=== PATIENT | female | born 1975 | race Caucasian/White ===

== ENCOUNTER 2017-05-28 11:10 | Emergency (ER) | payer SELFPAY ==
[2017-05-28 11:34] VITALS: BP 106/69; PULSE 82; RESP 18; TEMP 98; O2SAT 97
[2017-05-28 12:59] LABS: AUTOMATED NEUTROPHIL # 4.5 TH/MM3 (1.8-7.7); BASOPHIL % 0.6 % (0.0-2.0); EOSINOPHIL # 0.4 TH/MM3 (0-0.4); EOSINOPHIL % 5.8 % (0.0-4.0); HEMATOCRIT 42.8 % (35.0-46.0); HEMOGLOBIN 14.8 GM/DL (11.6-15.3); LYMPH % 19.4 % (9.0-44.0); LYMPHOCYTE # 1.3 TH/MM3 (1.0-4.8); MEAN CELL VOLUME 89.1 FL (80.0-100.0); MEAN CORPUSCULAR HEMOGLOBIN 30.9 PG (27.0-34.0); MEAN CORPUSCULAR HGB CONC 34.7 % (32.0-36.0); MEAN PLATELET VOLUME 8.6 FL (7.0-11.0); MONO % 5.1 % (0.0-8.0); MONOCYTE # 0.3 TH/MM3 (0-0.9); NEUT % 69.1 % (16.0-70.0); PLATELET COUNT 173 TH/MM3 (150-450); RED CELL DISTRIBUTION WIDTH 13.3 % (11.6-17.2); WHITE BLOOD COUNT 6.5 TH/MM3 (4.0-11.0)
[2017-05-28 13:14] LABS: BACTERIA, URINE RARE /hpf; BILIRUBIN, URINE NEG (NEG); BLOOD, URINE NEG (NEG); GLUCOSE,URINE 1000 mg/dL (NEG); KETONE, URINE NEG (NEG); MUCUS URINE FEW /lpf (OCC); NITRITE,URINE NEG (NEG); PH, URINE 5.5 (5.0-8.5); SQUAMOUS EPITHELIAL CELL URINE 7 /hpf (0-5); TRANSITIONAL EPI CELLS, URINE <1 /hpf; URINE COLOR YELLOW (YELLW/STRAW); URINE LEUKOCYTE ESTERASE NEG (NEG)
[2017-05-28 13:24] LABS: ALBUMIN 3.6 GM/DL (3.4-5.0); AST (GOT) 5 U/L (15-37); BICARBONATE 24.7 MEQ/L (21.0-32.0); BLOOD UREA NITROGEN 10 MG/DL (7-18); CALCIUM 8.7 MG/DL (8.5-10.1); CHLORIDE 104 MEQ/L (98-107); CREATININE 0.69 MG/DL (0.50-1.00); GLOMERULAR FILTRATION RATE 93 ML/MIN (>89); GLUCOSE,RANDOM 354 MG/DL (74-106); SODIUM (NA) 137 MEQ/L (136-145)
[2017-05-28 13:28] LABS: ALKALINE PHOSPHATASE 69 U/L (45-117); ALT (GPT) 18 U/L (10-53); TOTAL BILIRUBIN ADULT 0.5 MG/DL (0.2-1.0); TOTAL PROTEIN 6.5 GM/DL (6.4-8.2)
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
[2017-05-29] MEDS ORDERED: METF1000 PO (08:58)
[2017-05-29] MEDS ORDERED: EFFE150C PO (09:09)
[2017-05-29] MEDS ORDERED: HYDR50TA94 PO (09:09)
[2017-05-29] MEDS ORDERED: LANTUS2P SQ (09:09)
== END 2017-05-28 12:01 | disposition left against medical advice (07) ==
LOC: NETRI 11:10
DX: Z53.21 Procedure and treatment not carried out due to patient leaving prior to being seen by health care provider (principal); Z88.0 Allergy status to penicillin; Z88.5 Allergy status to narcotic agent
CPT/HCPCS: 80053; 81001; 83690; 85025; 99283

== ENCOUNTER 2017-05-29 07:31 | Inpatient (IN) | payer MEDICARE ==
[~2017-05-29] VITALS: Ht 154.9 cm; Wt 72.0 kg
[2017-05-29 07:55] VITALS: BP 113/72; PULSE 74; RESP 16; TEMP 98.3; O2SAT 98
[2017-05-29] MEDS ORDERED: METF1000 PO (08:58)
[2017-05-29] MEDS ORDERED: metFORMIN HCL 500 MG TAB PO ONE (09:00)
[2017-05-29] MEDS ORDERED: LANTUS2P SQ (09:09)
[2017-05-29] MEDS ORDERED: EFFE150C PO (09:09)
[2017-05-29] MEDS ORDERED: HYDR50TA94 PO (09:09)
--- NOTE | 2017-05-29 11:09 | PD ---
HPI Chief Complaint: Psychiatric Symptoms Time Seen by Provider: 08:48 Travel History International Travel<30 days: No Contact w/Intl Traveler<30days: No Traveled to known affect area: No History of Present Illness HPI 41-year-old female with history of type 2 diabetes, previously seen at [facility], and medically cleared at that time, was transferred to our facility under the Hua act for suicidal ideation. Patient remains medically stable currently. She remains suicidal with plan to jump into traffic to kill herself. For the labs are not felt warranted at this time, as she was just medically cleared prior to arrival. [facility] Past Medical History COPD: Yes Diabetes: Yes Patient Takes Glucophage: Yes Diminished Hearing: Yes (hearing loss both ears) Fibromyalgia: Yes Herniated Disk: Yes (L5) Respiratory: Yes (COPD) Tetanus Vaccination: < 5 Years Influenza Vaccination: No ?: Not Past Surgical History Section: Yes Cholecystectomy: Yes Hysterectomy: Yes Social History Alcohol Use: Yes (2x/month) Tobacco Use: Yes (1 ppd cigarettes) Substance Use: No Allergies-Medications (Allergen,Severity, Reaction): Coded Allergies: Penicillins (Verified Allergy, Unknown, 05/28/17) ciprofloxacin (Verified Allergy, Unknown, 05/28/17) hydromorphone (Verified Allergy, Unknown, 05/28/17) Reported Meds & Prescriptions Reported Meds & Active Scripts Active Reported Hydroxyzine HCl 50 Mg Tab 50 Mg PO HS Effexor XR 24 HR (Venlafaxine HCl) 150 Mg Cap 150 Mg PO DAILY Lantus Inj (Insulin Glargine) 1,000 Unit/10 Ml Vial 16 Units SQ BID Metformin (Metformin HCl) 1,000 Mg Tab 1,000 Mg PO BIDPC Review of Systems Except as stated in HPI: all other systems reviewed are Neg General / Constitutional: No: Fever Eyes: No: Visual changes HENT: No: Headaches Cardiovascular: No: Chest Pain or Discomfort Respiratory: No: Shortness of Breath Gastrointestinal: No: Abdominal Pain Genitourinary: No: Dysuria Musculoskeletal: No: Pain Skin: No Rash Neurologic: No: Weakness Psychiatric: Positive: Depression, Suicidal Ideations Endocrine: No: Polydipsia Hematologic/Lymphatic: No: Easy Bruising Physical Exam Narrative GENERAL: Patient appears anxious and in mild distress per SKIN: Warm and dry. Normal color. Normal turgor HEAD: Atraumatic. Normocephalic. EYES: Pupils equal and round. No scleral icterus. No injection or drainage. ENT: No nasal bleeding or discharge. Mucous membranes pink and moist. Pharynx is clear. Airways patent. NECK: Trachea midline. Supple and nontender. CARDIOVASCULAR: Regular rate and rhythm. RESPIRATORY: No accessory muscle use. Clear to auscultation. Breath sounds equal bilaterally. GASTROINTESTINAL: Abdomen soft, non-tender, nondistended. Hepatic and splenic margins not palpable. MUSCULOSKELETAL: Extremities without clubbing, cyanosis, or edema. No obvious deformities. NEUROLOGICAL: Awake and alert. No obvious cranial nerve deficits. Motor grossly within normal limits. Five out of 5 muscle strength in the arms and legs. Normal speech. PSYCHIATRIC: Appropriate mood and affect; insight and judgment normal. Data Data Last Documented VS Vital Signs Date Time Temp Pulse Resp B/P (MAP) Pulse Ox O2 Delivery O2 Flow Rate FiO2 05/29/17 07:55 98.3 74 16 113/72 (86) 98 Room Air Orders Orders Diet Diabetic (05/29/17 Breakfast) Metformin (Glucophage) (05/29/17 09:00) Diet Diabetic (05/29/17 Lunch) MDM Medical Decision Making Medical Screen Exam Complete: Yes Emergency Medical Condition: Yes Medical Record Reviewed: Yes Differential Diagnosis Hua act. Suicidal ideation. Type 2 diabetes Narrative Course 41-year-old female with history of type 2 diabetes, previously seen at [facility], and medically cleared at that time, was transferred to our facility under the Hua act for suicidal ideation. Patient remains medically stable currently. She remains suicidal with plan to jump into traffic to kill herself. For the labs are not felt warranted at this time, as she was just medically cleared prior to arrival. Disposition: 01 DISCHARGE HOME Condition: Stable Papo Vinson May 29, 2017 11:09
[2017-05-29] MEDS: INSULIN DETEMIR 100 UNITS/ML VIAL SQ SCH ×2 (11:57→21:28)
[2017-05-29 13:25] VITALS: BP 125/84; PULSE 75; RESP 16; TEMP 98.7; O2SAT 99
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
[2017-05-29] MEDS ORDERED: ACETAMINOPHEN 325 MG TAB PO PRN (17:30)
[2017-05-29] MEDS ORDERED: MAGNESIUM HYDROXIDE SUSP 30 ML CUP PO PRN (17:30)
[2017-05-29] MEDS ORDERED: ALUMINUM/MAGNESIUM/SIMETH 30 ML CUP PO PRN (17:30)
[2017-05-29] MEDS ORDERED: GLUCAGON 1 MG/ML VIAL OTHER PRN (18:00)
[2017-05-29] MEDS: metFORMIN HCL 500 MG TAB PO SCH (18:00)
[2017-05-29] MEDS ORDERED: DEXTROSE 50% IN WATER 50 ML VIAL(D50) IV PUSH PRN (18:00)
[2017-05-29 18:52] VITALS: BP 117/85; PULSE 78; RESP 18; TEMP 95.9
[2017-05-29] MEDS: hydrOXYzine HCL 50 MG TAB PO SCH ×2 (21:00→21:31)
[2017-05-29] MEDS: INSULIN ASPART SUPPLEMENTAL SCALE SQ SCH (21:28)
[2017-05-30 06:23] VITALS: BP 108/62; PULSE 62; RESP 16; TEMP 98.1; O2SAT 98
[2017-05-30] MEDS: INSULIN ASPART SUPPLEMENTAL SCALE SQ SCH ×4 (08:03→20:47)
[2017-05-30] MEDS: metFORMIN HCL 500 MG TAB PO SCH ×2 (09:06→17:57)
[2017-05-30] MEDS ORDERED: hydrOXYzine HCL 50 MG TAB PO ONE (12:00)
[2017-05-30 12:49] LABS: AUTOMATED NEUTROPHIL # 5.3 TH/MM3 (1.8-7.7); BASOPHIL % 0.6 % (0.0-2.0); EOSINOPHIL # 0.4 TH/MM3 (0-0.4); EOSINOPHIL % 5.1 % (0.0-4.0); HEMOGLOBIN 15.1 GM/DL (11.6-15.3); LYMPH % 20.8 % (9.0-44.0); LYMPHOCYTE # 1.6 TH/MM3 (1.0-4.8); MEAN CELL VOLUME 89.2 FL (80.0-100.0); MEAN CORPUSCULAR HEMOGLOBIN 31.3 PG (27.0-34.0); MEAN CORPUSCULAR HGB CONC 35.1 % (32.0-36.0); MONO % 4.7 % (0.0-8.0); MONOCYTE # 0.4 TH/MM3 (0-0.9); NEUT % 68.8 % (16.0-70.0); PLATELET COUNT 162 TH/MM3 (150-450); RED BLOOD COUNT 4.82 MIL/MM3 (4.00-5.30); RED CELL DISTRIBUTION WIDTH 13.7 % (11.6-17.2); WHITE BLOOD COUNT 7.6 TH/MM3 (4.0-11.0)
[2017-05-30 13:16] LABS: ALBUMIN 3.4 GM/DL (3.4-5.0); ALT (GPT) 16 U/L (10-53); AST (GOT) 6 U/L (15-37); BICARBONATE 28.4 MEQ/L (21.0-32.0); BLOOD UREA NITROGEN 11 MG/DL (7-18); CALCIUM 9.3 MG/DL (8.5-10.1); CHLORIDE 104 MEQ/L (98-107); CHOLESTEROL 184 MG/DL (120-200); GLOMERULAR FILTRATION RATE 109 ML/MIN (>89); GLUCOSE,RANDOM 166 MG/DL (74-106); MAGNESIUM 1.3 MG/DL (1.5-2.5); SODIUM (NA) 140 MEQ/L (136-145)
[2017-05-30 13:25] LABS: ALKALINE PHOSPHATASE 63 U/L (45-117); CHOLESTEROL/ HDL RATIO 4.27 RATIO; LDL CHOLESTEROL 106 MG/DL (0-99); PHOSPHORUS 4.1 MG/DL (2.5-4.9); TOTAL BILIRUBIN ADULT 0.4 MG/DL (0.2-1.0); TOTAL PROTEIN 6.3 GM/DL (6.4-8.2); TRIGLYCERIDES 175 MG/DL (42-150)
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
[2017-05-30 17:46] VITALS: BP 108/62; PULSE 62; RESP 16; TEMP 98.1; O2SAT 99
[2017-05-30] MEDS ORDERED: OXYC-395 PO (18:02)
[2017-05-30] MEDS ORDERED: METF1000 PO (18:04)
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
[2017-05-30] MEDS ORDERED: ALBUTEROL SULFATE 90 MCG/ACT HFA 8 GM INHALER INH PRN (18:30)
[2017-05-30 19:37] LABS: HEMOGLOBIN A1C 10.7 % (4.3-6.0)
[2017-05-30] MEDS: INSULIN DETEMIR 100 UNITS/ML VIAL SQ SCH (20:46)
[2017-05-30] MEDS ORDERED: INSULIN GLARGINE 1,000 UNITS/10 ML VIAL SQ SCH (21:00)
[2017-05-30] MEDS: hydrOXYzine HCL 50 MG TAB PO SCH (21:02)
[2017-05-31 06:16] VITALS: BP 96/66; PULSE 65; RESP 16; TEMP 98; O2SAT 97
[2017-05-31] MEDS: metFORMIN HCL 500 MG TAB PO SCH ×2 (06:50→16:00)
[2017-05-31] MEDS: INSULIN ASPART SUPPLEMENTAL SCALE SQ SCH ×4 (07:37→20:51)
[2017-05-31] MEDS: INSULIN DETEMIR 100 UNITS/ML VIAL SQ SCH ×2 (08:39→20:50)
[2017-05-31] MEDS: VENLAFAXINE HCL XR 75 MG CAP PO SCH (08:39)
[2017-05-31] MEDS ORDERED: MAGNESIUM OXIDE 400 MG TAB PO ONE (09:00)
[2017-05-31] MEDS: IBUPROFEN 800 MG TAB PO PRN (09:26)
[2017-05-31] MEDS ORDERED: MUPIROCIN 2% OINT 1 APPLIC/GM SYR EACH NARE SCH (09:30)
[2017-05-31] MEDS: hydrOXYzine HCL 50 MG TAB PO PRN (09:56)
--- NOTE | 2017-05-31 10:00 | HHI.PR ---
Subjective Remarks Follow-up on patient with diabetes, COPD, suicidal ideation. Patient seen and examined. Patient complains of a foul fishy odor and vaginal itching for the past several days. She denies any vaginal discharge or dysuria. She denies any fever or chills. She complains of tender sores on the inside of her nose. Denies any chest pain or shortness of breath. She denies any dizziness, lightheadedness or vision changes. Denies any nausea vomiting or abdominal pain. Objective Vitals Vital Signs Date Time Temp Pulse Resp B/P (MAP) Pulse Ox O2 Delivery O2 Flow Rate FiO2 05/31/17 06:16 98.0 65 16 96/66 (76) 97 05/30/17 17:46 98.1 62 16 108/62 (77) 99 Result Diagram: 05/30/17 1159 05/30/17 1159 Objective Remarks GENERAL: Well-nourished, well-developed female patient in NAD. Awake and alert. Sitting up in bed. SKIN: Warm and dry. No rash. HEAD: Normocephalic. Atraumatic. ENT: EOMI. Sclera anicteric. (+)tender erythematous lesions on inside of nares. Mucous membranes pink and moist. CARDIOVASCULAR: Regular rate and rhythm. No murmur appreciated. RESPIRATORY: Nonlabored. Clear to auscultation. Breath sounds equal bilaterally. GASTROINTESTINAL: Abdomen soft, non-tender, nondistended. Normoactive bowel sounds x4. MUSCULOSKELETAL: No obvious deformities. Extremities without clubbing, cyanosis , or edema. Right elbow with no edema/erythema, nontender to palpation, full active ROM. NEUROLOGICAL: Awake and alert. No obvious cranial nerve deficits. Motor grossly within normal limits. 5/5 muscle strength in bilateral upper and lower extremities. Normal speech. PSYCHIATRIC: Blunt affect. Calm and cooperative. Medications and IVs Current Medications Medications (Trade) Dose Ordered Sig/Diana Route Start Time Stop Time Status Last Admin (Milk Of Magnesia Liq) 30 ml DAILY PRN PO 05/29/17 17:30 (Mag-Al Plus Susp Liq) 30 ml Q6H PRN PO 05/29/17 17:30 (D50w (Vial) Inj) 50 ml UNSCH PRN IV PUSH 05/29/17 18:00 (Glucagon Inj) 1 mg UNSCH PRN OTHER 05/29/17 18:00 (NovoLOG SUPPLEMENTAL SCALE) 1 ACHS SLIDING SCALE SQ 05/29/17 21:00 05/30/17 20:47 (Atarax) 50 mg HS PO 05/29/17 21:00 05/30/17 21:02 (Effexor Xr) 150 mg DAILY PO 05/31/17 09:00 05/31/17 08:39 (Motrin) 800 mg Q8H PRN PO 05/30/17 14:15 05/31/17 09:26 (Levemir Inj) 16 units BID SQ 05/30/17 21:00 05/31/17 08:39 (Roxicodone) 10 mg BID PRN PO 05/30/17 18:15 05/30/17 19:46 (Glucophage) 1,000 mg BIDAC PO 05/31/17 07:00 05/31/17 06:50 (Proair Hfa Inh) 2 puff Q4H PRN INH 05/30/17 18:30 (Mag-Ox) 400 mg Q12HR PO 05/31/17 21:00 06/02/17 20:59 (Bactroban Nasal 2% Oint) 1 applic BID EACH NARE 05/31/17 09:30 06/05/17 09:29 05/31/17 09:30 (Atarax) 50 mg BID PRN PO 05/31/17 10:00 05/31/17 09:56 A/P Problem List: (1) Chronic back pain ICD Code: M54.9 - Dorsalgia, unspecified; G89.29 - Other chronic pain (2) Diabetes mellitus ICD Code: E11.9 - Type 2 diabetes mellitus without complications Assessment and Plan 41-year-old homeless female with history of type 2 diabetes, COPD, tobacco use 2PPD, fibromyalgia, chronic back pain with herniated disc L5-S1, depression, anxiety, PTSD, admitted to inpatient psychiatry for suicidal ideations with a plan to run out in traffic. Hospitalist consulted for medical management of diabetes. Depression with Suicidal Ideations: acute -continue management per psychiatry Chronic Back Pain, Herniated Disc, Fibromyalgia: chronic. Wants her medications restarted; takes oxycodone 10 mg po bid (verified on E-Forcse), sees pain management Dr. Heather Levine in [place], [place]. -continue patient's oxycodone 10mg po bid prn pain -continue outpatient follow up with pain management Hypotensive, asymptomatic -BP 96/66 this am, repeat BP 116/85 -continue to monitor BP Diabetes Mellitus: chronic -A1c 10.7. Patient states previous A1c was 13. -blood sugar running low to mid 200s in the afternoon. Increase Levemir to 18u in am. Continue Levemir 16u at night. -continue patient's Lantus 16u sq bid (converted to Levemir) -continue patient's metformin 1000mg bidac -monitor accu-cheks and cover with SSI Vaginal odor/itching -UA ordered, no culture indicated -will treat empirically for trichomonas, metronidazole 2g x 1 dose -obtain urine for GC/Chlamydia Hypomagnesemia -po repletion ordered -repeat Mag level in 2-3 days Impetigo -Mupirocin TID each nare x 5 days Tobacco Use: chronic. Smokes 2 PPD. -nicotine patch -counseled on cessation COPD: chronic, does not appear to be in exacerbation -albuterol inhaler 2puff q4h prn SOB/wheezing Hyperlipidemia: lipid panel revealed triglycerides 175, cholesterol 184, LDL 106 , HDL 43 - nonfasting labs -elder counselor on diet control -no heart disease, however patient does have diabetes therefore LDL goal is less than 70 -diet control for now, outpatient follow up with PCP for repeat LFTs in 3 months DVT Prophylaxis: patient is ambulatory Kalyn Jenkins May 31, 2017 10:00
[2017-05-31 10:08] LABS: BACTERIA, URINE RARE /hpf; BILIRUBIN, URINE NEG (NEG); BLOOD, URINE NEG (NEG); GLUCOSE,URINE 300 mg/dL (NEG); HYALINE CAST, URINE 1 /lpf (RARE); KETONE, URINE NEG (NEG); MUCUS URINE MOD /lpf (OCC); NITRITE,URINE NEG (NEG); PH, URINE 5.5 (5.0-8.5); SQUAMOUS EPITHELIAL CELL URINE 8 /hpf (0-5); URINE COLOR YELLOW (YELLW/STRAW); URINE LEUKOCYTE ESTERASE LARGE (NEG)
[2017-05-31] MEDS ORDERED: metroNIDAZOLE 500 MG TAB PO ONE (11:00)
[2017-05-31 12:16] VITALS: BP 116/85; PULSE 86; RESP 18; O2SAT 98
--- NOTE | 2017-05-31 14:32 | PD.PSY.CON ---
Provisional Diagnosis Admission Date May 29, 2017 at 17:29 [place]. Adjustment disorder with mixed disturbances of emotion and conduct, borderline personality disorder History of Present Illness Service Psychiatry Consult Requested By Psychiatry Reason for Consult 2nd Opinion Primary Care Physician No Primary Care Physician HPI Pt seen and discussed with staff. Chart reviewed. She was admitted to [facility] under BA taken out by [facility] alleging that pt made suicidal threats to walk into traffic if discharged from the hospital. She reports that she remains depressed and anxious and remains suicidal. She has been easily agitated and anxious today. She reports that she has had numerous psychiatric hospitalizations and approximately 10 lifetime suicide attempts. She states that she is tolerating medications without side effects. She denies psychosis or corina. She reports that she has had previous trials of effexor which was helpful with depression. Review of Systems Psychiatric: COMPLAINS OF: Anxiety, Depression, Suicidal Ideation Past Family Social History Coded Allergies: Penicillins (Verified Allergy, Unknown, 05/28/17) ciprofloxacin (Verified Allergy, Unknown, 05/28/17) hydromorphone (Verified Allergy, Unknown, 05/28/17) Past Medical History depression. multiple psychiatric hospitalization. 10 lifetime suicide attempts Active Scripts Metformin (Metformin) 1,000 Mg Tab, 1000 MG PO BIDAC for Blood Sugar Management , #60 TAB 0 Refills Prov:Maryann Jean PA-C 05/30/17 Oxycodone (Oxycodone) 10 Mg Tab, 10 MG PO BID Y for PAIN, #30 TAB 0 Refills Prov:Maryann Jean PA-C 05/30/17 Reported Medications Hydroxyzine HCl (Hydroxyzine HCl) 50 Mg Tab, 50 MG PO HS, TAB 0 Refills 05/29/17 Venlafaxine ER 24 HR (Effexor XR 24 HR) 150 Mg Cap, 150 MG PO DAILY, #30 CAP 0 Refills 05/29/17 Insulin Glargine Inj (Lantus Inj) 1,000 Unit/10 Ml Vial, 16 UNITS SQ BID for Blood Sugar Management, VIAL 0 Refills 05/29/17 Current Medications Medications (Trade) Dose Ordered Sig/Diana Route Start Time Stop Time Status Last Admin (Milk Of Magnesia Liq) 30 ml DAILY PRN PO 05/29/17 17:30 (Mag-Al Plus Susp Liq) 30 ml Q6H PRN PO 05/29/17 17:30 05/31/17 11:54 (D50w (Vial) Inj) 50 ml UNSCH PRN IV PUSH 05/29/17 18:00 (Glucagon Inj) 1 mg UNSCH PRN OTHER 05/29/17 18:00 (NovoLOG SUPPLEMENTAL SCALE) 1 ACHS SLIDING SCALE SQ 05/29/17 21:00 05/31/17 11:19 (Atarax) 50 mg HS PO 05/29/17 21:00 05/30/17 21:02 (Effexor Xr) 150 mg DAILY PO 05/31/17 09:00 05/31/17 08:39 (Motrin) 800 mg Q8H PRN PO 05/30/17 14:15 05/31/17 09:26 (Roxicodone) 10 mg BID PRN PO 05/30/17 18:15 05/31/17 11:10 (Glucophage) 1,000 mg BIDAC PO 05/31/17 07:00 05/31/17 06:50 (Proair Hfa Inh) 2 puff Q4H PRN INH 05/30/17 18:30 (Mag-Ox) 400 mg Q12HR PO 05/31/17 21:00 06/02/17 20:59 (Atarax) 50 mg BID PRN PO 05/31/17 10:00 05/31/17 09:56 (Levemir Inj) 16 units HS SQ 05/31/17 21:00 (Levemir Inj) 18 units DAILY SQ 06/01/17 09:00 (Bactroban Nasal 2% Oint) 1 applic TID EACH NARE 05/31/17 18:00 06/05/17 17:59 Family Psych History depression Social History homeless Patient's Strengths (min. 2) Patient verbal, access to health care. Physical Exam Vital Signs Vital Signs Date Time Temp Pulse Resp B/P (MAP) Pulse Ox O2 Delivery O2 Flow Rate FiO2 05/31/17 12:16 86 18 116/85 (95) 98 05/31/17 06:16 98.0 05/29/17 13:25 Room Air Lab Results Test 05/31/17 09:32 Urine Color YELLOW Urine Turbidity HAZY Urine pH 5.5 Urine Specific [place] 1.015 Urine Protein NEG mg/dL Urine Glucose (UA) 300 mg/dL Urine Ketones NEG mg/dL Urine Occult Blood NEG Urine Nitrite NEG Urine Bilirubin NEG Urine Urobilinogen LESS THAN 2.0 MG/DL Urine Leukocyte Esterase LARGE Urine RBC 3 /hpf Urine WBC 5 /hpf Urine Squamous Epithelial Cells 8 /hpf Urine Bacteria RARE /hpf Urine Hyaline Casts 1 /lpf Urine Mucus MOD /lpf Microscopic Urinalysis Comment CULT NOT INDICATED Mental Status Examination Appearance: Appropriate (in hospital [facility]), Disheveled Consciousness: Alert Orientation: x4 Motor Activity: Normal gait Speech: Unremarkable Language: Adequate Fund of Knowledge: Adequate Attention and Concentration: Adequate Memory: Unremarkable Mood: Angry, Sad, Other (deepressed) Affect: Other (dysphoric) Thought Process & Associations: Intact, Logical, Goal directed Thought Content: Appropriate Hallucination Type: None Delusion Type: None Suicidal Ideation: Yes Suicidal Plan: Yes (walk in traffic) Suicidal Intention: No Homicidal Ideation: No Homicidal Plan: No Homicidal Intention: No Insight: Fair Judgment: Impulsive Assessment & Plan Problem List: (1) Adjustment disorder with mixed disturbance of emotions and conduct ICD Codes: F43.25 - Adjustment disorder with mixed disturbance of emotions and conduct Assessment & Plan I agree that pt meets criteria for involuntary hospitalization. 2nd opinion paperwork completed Estimated LOS: days Request HC Surrog/Guard Advoc?: Johnna Franks MD May 31, 2017 14:32
[2017-05-31] MEDS ORDERED: ONDANSETRON ODT 4 MG TAB PO ONE (16:00)
[2017-05-31] MEDS: MUPIROCIN 2% OINT 1 APPLIC/GM SYR EACH NARE SCH (17:02)
[2017-05-31 18:29] VITALS: BP 112/66; PULSE 66; RESP 18; TEMP 98.3; O2SAT 99
--- NOTE | 2017-05-31 19:19 | EKG ---
Date Performed: 05/30/2017 Time Performed: 12:45:24 PTAGE: 41 years EKG: Sinus rhythm NORMAL ECG NO PREVIOUS TRACING DOCTOR: Romel Wilcox Interpretating Date/Time 05/31/2017 19:17:39
[2017-05-31] MEDS: MAGNESIUM OXIDE 400 MG TAB PO SCH (20:47)
[2017-05-31] MEDS: hydrOXYzine HCL 50 MG TAB PO SCH (20:47)
[2017-06-01 05:38] VITALS: BP 94/69; PULSE 83; RESP 17; TEMP 98.2; O2SAT 99
[2017-06-01] MEDS: INSULIN ASPART SUPPLEMENTAL SCALE SQ SCH ×4 (07:01→20:34)
[2017-06-01] MEDS: VENLAFAXINE HCL XR 75 MG CAP PO SCH (08:34)
[2017-06-01] MEDS: IBUPROFEN 800 MG TAB PO PRN (08:34)
[2017-06-01] MEDS: hydrOXYzine HCL 50 MG TAB PO PRN (08:34)
[2017-06-01] MEDS: MAGNESIUM OXIDE 400 MG TAB PO SCH ×2 (08:35→20:33)
[2017-06-01] MEDS: metFORMIN HCL 500 MG TAB PO SCH ×2 (08:35→16:49)
[2017-06-01] MEDS: INSULIN DETEMIR 100 UNITS/ML VIAL SQ SCH ×2 (08:35→21:44)
[2017-06-01] MEDS: MUPIROCIN 2% OINT 1 APPLIC/GM SYR EACH NARE SCH ×3 (09:50→16:49)
[2017-06-01 12:08] VITALS: BP 100/66; PULSE 98
--- NOTE | 2017-06-01 12:28 | HHI.PR ---
Subjective Remarks Follow-up for hypotension, DM, and COPD. Patient seen in and examined in her room, reports she is feeling overall well. States that yesterday she had some nausea and vomiting after she received antibiotic, none since then. Denies any fevers, chills, nausea, vomiting, diarrhea, headache or dizziness. Reports she has not needed her inhaler, makes no complaints of pain or discomfort. Objective Vitals Vital Signs Date Time Temp Pulse Resp B/P (MAP) Pulse Ox O2 Delivery O2 Flow Rate FiO2 06/01/17 12:08 98 100/66 (77) 06/01/17 05:38 98.2 83 17 94/69 (77) 99 05/31/17 18:29 98.3 66 18 112/66 (81) 99 I/O 05/31/17 05/31/17 05/31/17 06/01/17 06/01/17 06/01/17 07:00 15:00 23:00 07:00 15:00 23:00 Intake Total 240 ml Balance 240 ml Intake Oral 240 ml Result Diagram: 05/30/17 1159 05/30/17 1159 Objective Remarks GENERAL: Well-nourished, well-developed female patient in [facility]. Awake and alert. SKIN: Warm and dry. No rash. HEAD: Normocephalic. Atraumatic. ENT: EOMI. trachea midline. Mucous membranes pink and moist. CARDIOVASCULAR: Regular rate and rhythm. No murmur appreciated. RESPIRATORY: Nonlabored. Clear to auscultation. Breath sounds equal bilaterally. GASTROINTESTINAL: Abdomen soft, non-tender, nondistended. Normoactive bowel sounds x4. MUSCULOSKELETAL: No obvious deformities. Extremities without clubbing, cyanosis , or edema. Moving all extremities spontaneously. NEUROLOGICAL: Awake and alert. No obvious cranial nerve deficits. Motor grossly within normal limits. 5/5 muscle strength in bilateral upper and lower extremities. Normal speech. A/P Problem List: (1) Chronic back pain ICD Code: M54.9 - Dorsalgia, unspecified; G89.29 - Other chronic pain (2) Diabetes mellitus ICD Code: E11.9 - Type 2 diabetes mellitus without complications Assessment and Plan 41-year-old homeless female with history of type 2 diabetes, COPD, tobacco use 2PPD, fibromyalgia, chronic back pain with herniated disc L5-S1, depression, anxiety, PTSD, admitted to inpatient psychiatry for suicidal ideations with a plan to run out in traffic. Hospitalist consulted for medical management of diabetes. Depression with Suicidal Ideations: acute -continue management per psychiatry Chronic Back Pain, Herniated Disc, Fibromyalgia: chronic. Wants her medications restarted; takes oxycodone 10 mg po bid (verified on E-Forcse), sees pain management Dr. Heather Levine in [place], [place]. -continue patient's oxycodone 10mg po bid prn pain -continue outpatient follow up with pain management Hypotensive, asymptomatic -BP 94/69 this am, repeat BP 100/66 -Patient asymptomatic and reports that her blood pressure is usually on the low side. No treatment indicated at the moment. Diabetes Mellitus: chronic -A1c 10.7. Patient states previous A1c was 13. -blood sugar this AM 91, in the low 200s during the day. Continue Increase Levemir to 18u in am, Levemir 16u at night. -continue patient's Lantus 16u sq bid (converted to Levemir) -continue patient's metformin 1000mg bidac -monitor accu-cheks and cover with SSI Vaginal odor/itching -UA ordered, no culture indicated -s/p empiric treatment for trichomonas with metronidazole 2g x 1 dose on 05/31 - urine GC/Chlamydia check still pending Hypomagnesemia -po repletion ordered -repeat Mag level in 2-3 days Impetigo -Mupirocin TID each nare x 5 days Tobacco Use: chronic. Smokes 2 PPD. -nicotine patch -counseled on cessation COPD: chronic, not exacerbated -albuterol inhaler 2puff q4h prn SOB/wheezing Hyperlipidemia: lipid panel revealed triglycerides 175, cholesterol 184, LDL 106 , HDL 43 - nonfasting labs -no heart disease, however patient does have diabetes therefore LDL goal is less than 70 -diet control for now, outpatient follow up with PCP for repeat LFTs in 3 months DVT Prophylaxis: patient is ambulatory Discussed with nurse. Mohan Burton Jun 01, 2017 12:28
--- NOTE | 2017-06-01 14:52 | HHI.PYPN ---
Subjective Chief Complaint: patient depressed suicidal with plan, would take suicide pill Remarks Pt seen and discussed with staff. She has been agitated and demanding with staff. She has been engaging in splitting behaviors and continues to endorse SI. She is compliant with medications and has spent most of day out in the unit. She denies side effects. She reports that mood is starting to improve and SI is lessening. Mental Status Examination Appearance: Appropriate (in [facility]), Disheveled Consciousness: Alert Orientation: x4 Motor Activity: Normal gait Speech: Unremarkable Language: Adequate Fund of Knowledge: Adequate Attention and Concentration: Adequate Memory: Unremarkable Mood: Angry, Sad, Other (depressed) Affect: Sad Thought Process & Associations: Intact, Logical, Goal directed Thought Content: Appropriate Hallucination Type: None Delusion Type: None Suicidal Ideation: Yes Suicidal Plan: No Suicidal Intention: No Homicidal Ideation: No Homicidal Plan: No Homicidal Intention: No Insight: Fair Judgment: Impulsive Results Vitals/IOs Vital Signs Date Time Temp Pulse Resp B/P (MAP) Pulse Ox O2 Delivery O2 Flow Rate FiO2 06/01/17 12:08 98 100/66 (77) 06/01/17 05:38 98.2 17 99 05/29/17 13:25 Room Air Assessment & Plan Problem List: (1) Adjustment disorder with mixed disturbance of emotions and conduct ICD Codes: F43.25 - Adjustment disorder with mixed disturbance of emotions and conduct Assessment & Plan Pt improving. Continue current tx plan. Estimated LOS: days Justification for Cont. Inpt. risk of decompensation Request HC Surrog/Guard Advoc?: Johnna Franks MD Jun 01, 2017 14:52
[2017-06-01 17:59] VITALS: BP 98/61; PULSE 75; RESP 17; TEMP 98; O2SAT 98
[2017-06-01] MEDS: hydrOXYzine HCL 50 MG TAB PO SCH (20:33)
[2017-06-02 06:00] VITALS: BP 106/65; PULSE 78; RESP 18; TEMP 98.2; O2SAT 98
[2017-06-02] MEDS: metFORMIN HCL 500 MG TAB PO SCH ×2 (06:12→09:19)
[2017-06-02 06:43] LABS: BICARBONATE 30.2 MEQ/L (21.0-32.0); CALCIUM 9.1 MG/DL (8.5-10.1); CREATININE 0.53 MG/DL (0.50-1.00); MAGNESIUM 1.8 MG/DL (1.5-2.5)
[2017-06-02] MEDS: INSULIN ASPART SUPPLEMENTAL SCALE SQ SCH ×2 (08:00→11:28)
[2017-06-02] MEDS: INSULIN DETEMIR 100 UNITS/ML VIAL SQ SCH (09:00)
[2017-06-02] MEDS: MUPIROCIN 2% OINT 1 APPLIC/GM SYR EACH NARE SCH ×2 (09:00→12:20)
[2017-06-02] MEDS: VENLAFAXINE HCL XR 75 MG CAP PO SCH (09:18)
[2017-06-02] MEDS: hydrOXYzine HCL 50 MG TAB PO PRN (09:18)
[2017-06-02] MEDS: MAGNESIUM OXIDE 400 MG TAB PO SCH (09:19)
--- NOTE | 2017-06-02 15:14 | HHI.PR ---
Subjective Remarks Follow-up DM, uncontrolled. COPD. Patient seen and examined today. Upset that she is still at the unit. Requesting to go home. Discussed with patient results of her hemoglobin A1c >10 which is uncontrolled. Since that portion of her food and here is small. She takes Lantus twice a day 16 units. Discussed with patient that needs to adjust the dose for the meantime because her blood glucose is low. If she goes home she may continue to use her Lantus at a lower dose of 12 units and follow-up with her PCP. Denies pain and discomfort. Denies SOB/ dyspnea. Denies chest pain, palpitations, headaches, dizziness. Denies fevers, chills, n/v/d. Denies dysuria. Objective Vitals Vital Signs Date Time Temp Pulse Resp B/P (MAP) Pulse Ox O2 Delivery O2 Flow Rate FiO2 06/02/17 06:00 98.2 78 18 106/65 (79) 98 06/01/17 17:59 98.0 75 17 98/61 (73) 98 I/O 06/01/17 06/01/17 06/01/17 06/02/17 06/02/17 06/02/17 07:00 15:00 23:00 07:00 15:00 23:00 Intake Total 240 ml Balance 240 ml Intake Oral 240 ml Result Diagram: 05/30/17 1159 06/02/17 0545 Objective Remarks GENERAL: This is a well-nourished, well-developed patient, in no apparent distress. SKIN: Warm and dry. HEENT: Normocephalic. Pupils equal round and reactive. Nose without bleeding. Airway patent. NECK: Trachea midline. CARDIOVASCULAR: Regular rate and rhythm without murmurs, gallops, or rubs. RESPIRATORY: Clear to auscultation. Breath sounds equal bilaterally. No wheezes , rales, or rhonchi. GASTROINTESTINAL: Abdomen soft, non-tender, nondistended. Bowel Sounds normoactive x4. MUSCULOSKELETAL: Extremities without clubbing, cyanosis, or edema. NEUROLOGICAL: Awake and alert. Oriented to time, place, person. No focal neuro deficit. Moves all extremities. Normal speech. A/P Problem List: (1) Chronic back pain ICD Code: M54.9 - Dorsalgia, unspecified; G89.29 - Other chronic pain (2) Diabetes mellitus ICD Code: E11.9 - Type 2 diabetes mellitus without complications Assessment and Plan 41-year-old homeless female with history of type 2 diabetes, COPD, tobacco use 2PPD, fibromyalgia, chronic back pain with herniated disc L5-S1, depression, anxiety, PTSD, admitted to inpatient psychiatry for suicidal ideations with a plan to run out in traffic. Hospitalist consulted for medical management of diabetes. Depression with Suicidal Ideations: acute -continue management per psychiatry Chronic Back Pain, Herniated Disc, Fibromyalgia: chronic. Wants her medications restarted; takes oxycodone 10 mg po bid (verified on E-Forcse), sees pain management Dr. Heather Levine in [place], [place]. -continue patient's oxycodone 10mg po bid prn pain -continue outpatient follow up with pain management Diabetes Mellitus: chronic -A1c 10.7. Patient states previous A1c was 13. -Patient's Lantus 16u sq bid (converted to Levemir) -continue patient's metformin 1000mg bidac -Accuchecks low. Decrease Levemir 12 units twice daily. Will discharge patient with decreased dose of Lantus 12 units twice daily. Follow-up with PCP Vaginal odor/itching -UA ordered, no culture indicated -s/p empiric treatment for trichomonas with metronidazole 2g x 1 dose on 05/31 - Urine GC/Chlamydia pending Hypomagnesemia -po repletion ordered Tobacco Use: chronic. Smokes 2 PPD. -nicotine patch -counseled on cessation COPD: chronic, not exacerbated -albuterol inhaler 2puff q4h prn SOB/wheezing Hyperlipidemia: lipid panel revealed triglycerides 175, cholesterol 184, LDL 106 , HDL 43 - nonfasting labs -no heart disease, however patient does have diabetes therefore LDL goal is less than 70 -diet control for now, outpatient follow up with PCP for repeat LFTs in 3 months DVT Prophylaxis: patient is ambulatory Discharge Planning DC home with lower dose of Lantus. Follow-up with PCP for continuous monitoring. Constanza Barr Jun 02, 2017 15:14
[2017-06-02] MEDS ORDERED: EFFE150C PO (15:34)
[2017-06-02] MEDS ORDERED: HYDR50TA94 PO (15:34)
[2017-06-02] MEDS ORDERED: METF1000 PO (15:34)
[2017-06-02] MEDS ORDERED: LANTUS2P SQ (15:37)
--- NOTE | 2017-06-02 15:41 | HHI.DS ---
Psychiatry Discharge Summary Inpatient Psychiatric care?: Yes Advance Directive: No Reason Not Provided: declined Mental Health AdvanceDirective: No Health Care Proxy: No Admission Admission Date May 29, 2017 at 17:29 Admission Diagnosis: (1) Adjustment disorder with mixed disturbance of emotions and conduct ICD Code: F43.25 - Adjustment disorder with mixed disturbance of emotions and conduct Brief History Pt seen and discussed with staff. Chart reviewed. She was admitted to [facility] under BA taken out by [facility] alleging that pt made suicidal threats to walk into traffic if discharged from the hospital. She reports that she remains depressed and anxious and remains suicidal. She has been easily agitated and anxious today. She reports that she has had numerous psychiatric hospitalizations and approximately 10 lifetime suicide attempts. She states that she is tolerating medications without side effects. She denies psychosis or corina. She reports that she has had previous trials of effexor which was helpful with depression. Tobacco Use In Past 30 Days: 4 or Less Cigarettes/Day Alcohol Use: Never Hospital Course Patient seen in [place] with nurse Ju, chart review, patient compliant medications, patient discussed with nurse. 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 However she denies suicidality homicidality voices or visions at the present time. States she has a friend with whom she can live until she gets her check a can get her own room. He also talked to the medicine service they are adjusting her diabetic medications for discharge also thus patient be discharged today to follow-up with her PCP and follow-up with Carlos mixon medication management Results Blood Pressure 106 / 65 Vital Signs Date Time Temp Pulse Resp B/P (MAP) Pulse Ox O2 Delivery O2 Flow Rate FiO2 06/02/17 06:00 98.2 78 18 106/65 (79) 98 05/29/17 13:25 Room Air Laboratory Tests Test 05/31/17 09:32 06/02/17 05:45 Urine Turbidity HAZY (CLEAR) Urine Glucose (UA) 300 mg/dL (NEG) Urine Leukocyte Esterase LARGE (NEG) Urine Bacteria RARE /hpf (NONE) Urine Mucus MOD /lpf (OCC) Random Glucose 72 MG/DL (74-106) Laboratory Results Test 05/30/17 11:59 Cholesterol Level 184 MG/DL (120-200) HDL Cholesterol 43.0 MG/DL (40.0-60.0) Hemoglobin A1c 10.7 % (4.3-6.0) LDL Cholesterol 106 MG/DL (0-99) Triglycerides Level 175 MG/DL (42-150) Summary of Procedures None done Pending results at discharge: No Medications # of Antipsychotic meds at D/C: 0 Approp Antipsych med options 1 - Minimum of three failed multiple trials of monotherapy. 2 - Documented plan to taper to monotherapy due to previous use of multiple meds OR cross-taper in progress at D/C. 3 - Documentation of augmentation of Clozapine. 4 - Justification other than those listed in allowable values 1-3, document here : Discharge Discharge Date: Jun 02, 2017 Discharge Diagnosis: (1) Adjustment disorder with mixed disturbance of emotions and conduct Diagnosis: Principal ICD Code: F43.25 - Adjustment disorder with mixed disturbance of emotions and conduct Pt Condition on Discharge: Stable Discharge Disposition: Discharge Home Discharge Instructions Diet Instructions: As Tolerated, No Restrictions Activities you can perform: Regular-No Restrictions Scheduled Appointment: Carlos Mixon Appointment Date: Jun 04, 2017 Appointment Time: 7:15AM Discharge Time > 30 minutes Mental Status Examination Appearance: Appropriate (in [facility] Disheveled Consciousness: Alert Orientation: x4 Motor Activity: Normal gait Speech: Unremarkable Language: Adequate Fund of Knowledge: Adequate Attention and Concentration: Adequate Memory: Unremarkable Mood: Angry, Sad, Other (depressed) Affect: Sad Thought Process & Associations: Intact, Logical, Goal directed Thought Content: Appropriate Hallucination Type: None Delusion Type: None Suicidal Ideation: Yes Suicidal Plan: No Suicidal Intention: No Homicidal Ideation: No Homicidal Plan: No Homicidal Intention: No Insight: Fair Judgment: Impulsive Discharge/Advance Care Plan Health Problems: (1) Adjustment disorder with mixed disturbance of emotions and conduct Goals to promote your health * To prevent worsening of your condition and complications * To maintain your health at the optimal level Directions to meet your goals Take your medications as prescribed Follow your dietary instruction Follow activity as directed Keep your appointments as scheduled Take your immunizations and boosters as scheduled If your symptoms worsen call your PCP, if no PCP go to Urgent Care Center or Emergency Room For 30/09 questions related to your inpatient stay or results of tests pending at discharge, please contact Dr. Giuseppe Valdez at Smoking is Dangerous to Your Health. Avoid second hand smoking Giuseppe Valdez MD Jun 02, 2017 15:41
[2017-06-02] MEDS ORDERED: INSULIN DETEMIR 100 UNITS/ML VIAL SQ SCH (21:00)
[2017-06-03] MEDS ORDERED: INSULIN DETEMIR 100 UNITS/ML VIAL SQ SCH (09:00)
== END 2017-06-02 17:05 | disposition home or self-care (01) | DRG 882 ==
LOC: NEPJ 07:31 → NEDA 17:29 → H260 17:50
PROVIDERS: ADMIT Psychiatry & Neurology Psychiatry; ATTEND Psychiatry & Neurology Psychiatry
DX: F43.25 Adjustment disorder with mixed disturbance of emotions and conduct (principal); I95.9 Hypotension, unspecified; R45.851 Suicidal ideations; E11.65 Type 2 diabetes mellitus with hyperglycemia; F17.210 Nicotine dependence, cigarettes, uncomplicated; A59.9 Trichomoniasis, unspecified; E83.42 Hypomagnesemia; M19.90 Unspecified osteoarthritis, unspecified site; M79.7 Fibromyalgia; G89.29 Other chronic pain; M54.9 Dorsalgia, unspecified; J44.9 Chronic obstructive pulmonary disease, unspecified; F43.10 Post-traumatic stress disorder, unspecified; M51.27 Other intervertebral disc displacement, lumbosacral region; E78.5 Hyperlipidemia, unspecified; H91.93 Unspecified hearing loss, bilateral; L01.00 Impetigo, unspecified; Z62.810 Personal history of physical and sexual abuse in childhood; Z76.5 Malingerer [conscious simulation]; Z59.0 Homelessness; Z91.410 Personal history of adult physical and sexual abuse; Z79.4 Long term (current) use of insulin; Z82.49 Family history of ischemic heart disease and other diseases of the circulatory system; R10.9 Unspecified abdominal pain
CPT/HCPCS: 80048; 80053; 80061; 81001; 82948; 83036; 83690; 83735; 84100; 84439; 84443; 85025; 93005; 96372; 99283; J1815

== ENCOUNTER 2017-10-29 00:45 | Inpatient (IN) ==
--- NOTE | 2017-10-29 01:10 | ED ---
HPI General Chief Complaint: Psychiatric Symptoms Stated Complaint: Suicidal ideations x 5 days Time Seen by Provider: 10/29/17 01:06 Source: patient Mode of arrival: ambulatory Limitations: no limitations History of Present Illness HPI Narrative: 42-year-old female presents to the emergency department stating that she wants to . Patient states that she has history of depression and takes Effexor. Patient has tried to harm herself in the past. Patient's plan would be to cut her wrists. Patient states she decided come to the emergency room instead of acting on her plan. Patient admits to drinking alcohol tonight. Patient has history of diabetes. Patient did not take her evening dose of insulin. Patient is also on metformin. Patient has had no recent illness fever cough congestion sore throat earache chest pain shortness of breath nausea vomiting abdominal pain flank pain dysuria frequency urgency skin rash or joint pain. Patient had no recent injury or fall. Patient has not contacted her mental health provider. Suicidal ideation started on Friday. MD complaint: suicidal ideation Onset (ago): day(s) Duration: constant History of same: Yes Relieving factors: none Exacerbating factors: none Context: recent alcohol abuse Associated psychiatric symptoms: depression and suicidal ideation Associated symptoms: denies other symptoms Treatments prior to arrival: none If self harm: admits thoughts of self harm (Cutting her wrists) Related Data Home Medications Medication Instructions Recorded Confirmed hydroxyzine pamoate 50 mg PO QID PRN 10/02/17 10/29/17 insulin asp prt-insulin aspart 1 sliding scale dose SUB-Q UD 10/02/17 10/29/17 [Novolog Mix 70-30 U-100 Insuln] omeprazole magnesium [Prilosec OTC] 40 mg PO DAILY 10/02/17 10/29/17 oxycodone 10 mg PO Q4-6H PRN 10/02/17 10/29/17 venlafaxine [Effexor XR] 150 mg PO DAILY 10/02/17 10/29/17 Previous Rx's Medication Instructions Recorded ibuprofen 800 mg PO Q8H PRN #20 tab 10/02/17 Allergies Allergy/AdvReac Type Severity Reaction Status Date / Time ciprofloxacin Allergy Unknown Edema Verified 10/29/17 01:06 hydromorphone Allergy Unknown Unconscious Verified 10/29/17 01:06 Penicillins Allergy Unknown Anaphylaxis Verified 10/29/17 01:06 Review of Systems ROS: all other systems reviewed are negative PMFSH Medical History Medical History History of chronic pain (Acute) Hx of anxiety disorder (Acute) Hx of diabetes mellitus (Acute) Hx of hysterectomy (Acute) Hx of major depression (Acute) Surgical History Surgical History History of (Acute) Hx of cholecystectomy (Acute) Social History Social History Substance History: Active Abuse Smoking Status: Current every day smoker Tobacco Type: Cigarettes How Often Do You Have a Drink Containing Alcohol: 2 to 3 times a week Recent Travel in [facility] within the Last 8 Weeks: No Recent Out of Country Travel within the Last 8 Weeks: No Exam Narrative Exam Narrative: GENERAL: Well-nourished, well-developed patient. No acute distress no respiratory distress GCS 15. SKIN: Focused skin assessment warm/dry. HEAD: Normocephalic. EYES: No scleral icterus. No injection or drainage. NECK: Supple, trachea midline. No JVD or lymphadenopathy. CARDIOVASCULAR: Regular rate and rhythm without murmurs, gallops, or rubs. RESPIRATORY: Breath sounds equal bilaterally. No accessory muscle use. GASTROINTESTINAL: Abdomen soft, non-tender, nondistended. MUSCULOSKELETAL: No cyanosis, or edema. BACK: Nontender without obvious deformity. No CVA tenderness. Course Initial Documented Vital Signs Temperature 98.7 F 10/29/17 00:49 Pulse Rate 114 H 10/29/17 00:49 Respiratory Rate 16 10/29/17 00:49 Blood Pressure 138/91 H 10/29/17 00:49 Pulse Oximetry 97 10/29/17 00:49 Last Documented Vital Signs Temperature 98.7 F 10/29/17 00:49 Pulse Rate 114 H 10/29/17 00:49 Respiratory Rate 16 10/29/17 00:49 Blood Pressure 138/91 H 10/29/17 00:49 Pulse Oximetry 97 10/29/17 00:49 Medical Decision Making MDM Narrative Medical decision making narrative: 42-year-old female with history of depression presents to the emergency department with suicidal ideation with anticipated plan of cutting her wrist. Specimens collected do single venipuncture without IV access catheter Melita act completed by me and patient will be medically cleared to be transferred to [facility] mental health unit. Serum glucose 518 bicarb is normal and gap is not elevated mild renal insufficiency BUN of 19 and creatinine of 1.20 identified patient given a liter of normal saline as well as regular insulin 7 units weight-based dosing On recheck blood sugar has decreased to 222 at 3 AM. Patient very agitated requesting medication for agitation hydroxyzine is patient's request and urine drug screen is negative salicylate level is not elevated acetaminophen suspect that her blood pressure and pulse most likely reflect her generalized agitation as opposed to antihistamine overdose therefore will give a one-time dose of hydroxyzine. Patient given additional 500 cc of normal saline. Serum alcohol mildly elevated at 93. TSH is within normal range at 2.890. Urinalysis positive glucose positive ketones. We will reassess blood sugar at 1 hour from last BGM and patient will then be transferred for depression mood disorder suicidal ideation medically cleared to [facility]. Hua act in place. At 4 AM BGM 242 patient is MEDICALLY CLEARED for psych screen at [facility]; discussed with intake/psych screener Tom patient will be transferred to the ED as [facility] is full for further evaluation. ED Charge nurse notified. Medical Screen Exam Complete: Yes Emergency Medical Condition: Yes Differential Diagnosis Differential Diagnosis: Depression, mood disorder, alcohol intoxication, uncontrolled diabetes, metabolic encephalopathy Medical Records Medical records reviewed: Yes I reviewed the patient's medical records. Lab Data Result diagrams: 10/29/17 01:20 10/29/17 01:20 Lab Results 10/29/17 10/29/17 10/29/17 Range/Units 01:20 01:20 01:20 CBC w Diff Auto diff final WBC 8.8 (4.0-11.0) th/mm3 RBC 4.82 (4.00-5.30) mil/mm3 Hgb 15.3 (11.6-15.3) gm/dL Hct 44.9 (35.0-46.0) % MCV 93.2 (80.0-100.0) fL MCH 31.8 (27.0-34.0) pg MCHC 34.1 (32.0-36.0) % RDW 12.7 (11.6-17.2) % Plt Count 210 (150-450) th/mm3 MPV 8.6 (7.0-11.0) fL Neut % (Auto) 65.1 (16.0-70.0) % Lymph % (Auto) 25.7 (9.0-44.0) % Creek % (Auto) 4.0 (0.0-8.0) % Eos % (Auto) 3.2 (0.0-4.0) % Baso % (Auto) 2.0 (0.0-2.0) % Neut # (Auto) 5.6 (1.8-7.7) th/mm3 Lymph # (Auto) 2.3 (1.0-4.8) th/mm3 Creek # (Auto) 0.4 (0.0-0.9) th/mm3 Eos # (Auto) 0.3 (0.0-0.4) th/mm3 Baso # (Auto) 0.2 (0.0-0.2) th/mm3 WBC Differential . Differential Comment . Sodium 135 L (136-145) meq/L Potassium 3.9 (3.5-5.1) meq/L Chloride 99 (98-107) meq/L Carbon Dioxide 21.9 (21.0-32.0) meq/L Anion Gap 14 (5-15) meq/L BUN 19 H (7-18) mg/dL Creatinine 1.20 H (0.50-1.00) mg/dL Estimated GFR 49 L (>89) mL/min POC Glucose (68-110) mg/dl Random Glucose 518 H* (74-106) mg/dL Calcium 8.3 L (8.5-10.1) mg/dL Total Bilirubin 0.3 (0.2-1.0) mg/dL AST 13 L (15-37) U/L ALT 26 (10-53) U/L Alkaline Phosphatase 83 (45-117) U/L Total Protein 6.9 (6.4-8.2) g/dL Albumin 3.6 (3.4-5.0) g/dL TSH 2.890 (0.358-3.740) uIU/mL Urine Color (Yellw/Straw) Urine Clarity (Clear) Urine pH (5.0-8.5) Ur Specific [place] (1.002-1.035) Urine Protein (Neg-Trace) mg/dL Urine Glucose (UA) (Negative) mg/dL Urine Ketones (Negative) mg/dL Urine Occult Blood (Negative) Urine Nitrate (Negative) Urine Bilirubin (Negative) Urine Urobilinogen (Less than 2) mg/dL Ur Leukocyte Esterase (Negative) Urine RBC (0-3) /hpf Urine WBC (0-5) /hpf Ur Squamous Epith Cells (0-5) /hpf Micro UA Comment Urine Culture Comments Salicylates Less than 1.7 L (2.8-20.0) mg/dL Urine Opiates Screen (Neg) Acetaminophen Less than 2.0 L (10.0-30.0) mcg/mL Ur Barbiturates Screen (Neg) Ur Amphetamines Screen (Neg) U Benzodiazepines Scrn (Neg) Urine Cocaine Screen (Neg) U Cannabinoids Screen (Neg) Serum Alcohol 93 H (0-5) mg/dL 10/29/17 10/29/17 10/29/17 Range/Units 01:20 01:20 01:35 CBC w Diff WBC (4.0-11.0) th/mm3 RBC (4.00-5.30) mil/mm3 Hgb (11.6-15.3) gm/dL Hct (35.0-46.0) % MCV (80.0-100.0) fL MCH (27.0-34.0) pg MCHC (32.0-36.0) % RDW (11.6-17.2) % Plt Count (150-450) th/mm3 MPV (7.0-11.0) fL Neut % (Auto) (16.0-70.0) % Lymph % (Auto) (9.0-44.0) % Creek % (Auto) (0.0-8.0) % Eos % (Auto) (0.0-4.0) % Baso % (Auto) (0.0-2.0) % Neut # (Auto) (1.8-7.7) th/mm3 Lymph # (Auto) (1.0-4.8) th/mm3 Creek # (Auto) (0.0-0.9) th/mm3 Eos # (Auto) (0.0-0.4) th/mm3 Baso # (Auto) (0.0-0.2) th/mm3 WBC Differential Differential Comment Sodium (136-145) meq/L Potassium (3.5-5.1) meq/L Chloride (98-107) meq/L Carbon Dioxide (21.0-32.0) meq/L Anion Gap (5-15) meq/L BUN (7-18) mg/dL Creatinine (0.50-1.00) mg/dL Estimated GFR (>89) mL/min POC Glucose 512 H* (68-110) mg/dl Random Glucose (74-106) mg/dL Calcium (8.5-10.1) mg/dL Total Bilirubin (0.2-1.0) mg/dL AST (15-37) U/L ALT (10-53) U/L Alkaline Phosphatase (45-117) U/L Total Protein (6.4-8.2) g/dL Albumin (3.4-5.0) g/dL TSH (0.358-3.740) uIU/mL Urine Color Yellow (Yellw/Straw) Urine Clarity Clear (Clear) Urine pH 5.5 (5.0-8.5) Ur Specific [place] 1.020 (1.002-1.035) Urine Protein Negative (Neg-Trace) mg/dL Urine Glucose (UA) 1000 or greater H (Negative) mg/dL Urine Ketones Trace H (Negative) mg/dL Urine Occult Blood Negative (Negative) Urine Nitrate Negative (Negative) Urine Bilirubin Negative (Negative) Urine Urobilinogen 0.2 (Less than 2) mg/dL Ur Leukocyte Esterase Negative (Negative) Urine RBC 0-3 (0-3) /hpf Urine WBC 0-5 (0-5) /hpf Ur Squamous Epith Cells 6-10 H (0-5) /hpf Micro UA Comment Culture not ind Urine Culture Comments Culture not ind Salicylates (2.8-20.0) mg/dL Urine Opiates Screen Neg (Neg) Acetaminophen (10.0-30.0) mcg/mL Ur Barbiturates Screen Neg (Neg) Ur Amphetamines Screen Neg (Neg) U Benzodiazepines Scrn Neg (Neg) Urine Cocaine Screen Neg (Neg) U Cannabinoids Screen Neg (Neg) Serum Alcohol (0-5) mg/dL 10/29/17 10/29/17 10/29/17 Range/Units 02:58 03:58 04:00 CBC w Diff WBC (4.0-11.0) th/mm3 RBC (4.00-5.30) mil/mm3 Hgb (11.6-15.3) gm/dL Hct (35.0-46.0) % MCV (80.0-100.0) fL MCH (27.0-34.0) pg MCHC (32.0-36.0) % RDW (11.6-17.2) % Plt Count (150-450) th/mm3 MPV (7.0-11.0) fL Neut % (Auto) (16.0-70.0) % Lymph % (Auto) (9.0-44.0) % Creek % (Auto) (0.0-8.0) % Eos % (Auto) (0.0-4.0) % Baso % (Auto) (0.0-2.0) % Neut # (Auto) (1.8-7.7) th/mm3 Lymph # (Auto) (1.0-4.8) th/mm3 Creek # (Auto) (0.0-0.9) th/mm3 Eos # (Auto) (0.0-0.4) th/mm3 Baso # (Auto) (0.0-0.2) th/mm3 WBC Differential Differential Comment Sodium (136-145) meq/L Potassium (3.5-5.1) meq/L Chloride (98-107) meq/L Carbon Dioxide (21.0-32.0) meq/L Anion Gap (5-15) meq/L BUN (7-18) mg/dL Creatinine (0.50-1.00) mg/dL Estimated GFR (>89) mL/min POC Glucose 222 H 251 H 242 H (68-110) mg/dl Random Glucose (74-106) mg/dL Calcium (8.5-10.1) mg/dL Total Bilirubin (0.2-1.0) mg/dL AST (15-37) U/L ALT (10-53) U/L Alkaline Phosphatase (45-117) U/L Total Protein (6.4-8.2) g/dL Albumin (3.4-5.0) g/dL TSH (0.358-3.740) uIU/mL Urine Color (Yellw/Straw) Urine Clarity (Clear) Urine pH (5.0-8.5) Ur Specific [place] (1.002-1.035) Urine Protein (Neg-Trace) mg/dL Urine Glucose (UA) (Negative) mg/dL Urine Ketones (Negative) mg/dL Urine Occult Blood (Negative) Urine Nitrate (Negative) Urine Bilirubin (Negative) Urine Urobilinogen (Less than 2) mg/dL Ur Leukocyte Esterase (Negative) Urine RBC (0-3) /hpf Urine WBC (0-5) /hpf Ur Squamous Epith Cells (0-5) /hpf Micro UA Comment Urine Culture Comments Salicylates (2.8-20.0) mg/dL Urine Opiates Screen (Neg) Acetaminophen (10.0-30.0) mcg/mL Ur Barbiturates Screen (Neg) Ur Amphetamines Screen (Neg) U Benzodiazepines Scrn (Neg) Urine Cocaine Screen (Neg) U Cannabinoids Screen (Neg) Serum Alcohol (0-5) mg/dL Discharge Plan Discharge Disposition Patient Disposition: 30 Still Patient Discharge Condition Condition: Stable Discharge Details Diagnosis: Depression, Suicidal ideation, Hyperglycemia due to type 2 diabetes mellitus, Noncompliance with diabetes treatment Physicians Team ED Provider: Yudith Soares Rxs /Orders / Referrals /Forms Prescriptions: No Action venlafaxine [Effexor XR] 150 mg Capsule,Extended Release 24hr 150 mg PO DAILY RF: 0 hydroxyzine pamoate 50 mg Capsule 50 mg PO QID PRN (Reason: Anxiety) RF: 0 insulin asp prt-insulin aspart [Novolog Mix 70-30 U-100 Insuln] 100 unit/mL ( 70-30) Solution 1 sliding scale dose SUB-Q UD RF: 0 omeprazole magnesium [Prilosec OTC] 20 mg Tablet,Delayed Release (Dr/Ec) 40 mg PO DAILY RF: 0 oxycodone 10 mg Tablet 10 mg PO Q4-6H PRN (Reason: Pain) RF: 0 ibuprofen 800 mg tablet 800 mg PO Q8H PRN (Reason: fever or pain) Qty: 20 RF: 0 Status ED Status: With Doctor
[2017-10-29 01:31] LABS: Baso # (Auto) 0.2 th/mm3 (0.0-0.2); Eos # (Auto) 0.3 th/mm3 (0.0-0.4); Eos % (Auto) 3.2 % (0.0-4.0); Hematocrit 44.9 % (35.0-46.0); Hemoglobin 15.3 gm/dL (11.6-15.3); Lymph # (Auto) 2.3 th/mm3 (1.0-4.8); Lymph % (Auto) 25.7 % (9.0-44.0); Mean Corpuscular HGB Conc 34.1 % (32.0-36.0); Mean Corpuscular Hemoglobin 31.8 pg (27.0-34.0); Mean Corpuscular Volume 93.2 fL (80.0-100.0); Mean Platelet Volume 8.6 fL (7.0-11.0); Mono # (Auto) 0.4 th/mm3 (0.0-0.9); Neut # (Auto) 5.6 th/mm3 (1.8-7.7); Neut % (Auto) 65.1 % (16.0-70.0); Platelet Count 210 th/mm3 (150-450); Red Blood Count 4.82 mil/mm3 (4.00-5.30); Red Cell Distribution Width 12.7 % (11.6-17.2); White Blood Count 8.8 th/mm3 (4.0-11.0)
[2017-10-29 01:37] LABS: Bilirubin,Urine Negative (Negative); Clarity,Urine Clear (Clear); Color,Urine Yellow (Yellw/Straw); Leukocyte Esterase,Urine Negative (Negative); Nitrite,Urine Negative (Negative); PH,Urine 5.5 (5.0-8.5); Urobilinogen,Urine 0.2 mg/dL (Less than 2)
[2017-10-29 01:43] LABS: RBC,Urine 0-3 /hpf (0-3); WBC,Urine 0-5 /hpf (0-5)
[2017-10-29 01:48] LABS: Amphetamine Screen,Urine Neg (Neg)
[2017-10-29 01:49] LABS: Barbiturate Screen,Urine Neg (Neg); Chloride 99 meq/L (98-107); Potassium 3.9 meq/L (3.5-5.1); Sodium 135 meq/L (136-145)
[2017-10-29 01:52] LABS: Calcium 8.3 mg/dL (8.5-10.1); Cannabinoid Screen,Urine Neg (Neg)
[2017-10-29 01:53] LABS: Albumin 3.6 g/dL (3.4-5.0); Anion Gap 14 meq/L (5-15); Blood Urea Nitrogen 19 mg/dL (7-18); Carbon Dioxide 21.9 meq/L (21.0-32.0)
[2017-10-29 01:54] LABS: Cocaine Screen,Urine Neg (Neg)
[2017-10-29 01:55] LABS: Alanine Aminotransferase 26 U/L (10-53); Aspartate Aminotransferase 13 U/L (15-37)
[2017-10-29 01:56] LABS: Glomerular Filtration Rate 49 mL/min (>89)
[2017-10-29 01:57] LABS: Total Protein 6.9 g/dL (6.4-8.2)
[2017-10-29] MEDS ORDERED: Sod Chloride 0.9% Inj 1,000 ML IV.SIG ONE (01:58)
[2017-10-29 01:59] LABS: Alcohol 93 mg/dL (0-5); Opiate Screen,Urine Neg (Neg)
[2017-10-29 02:02] LABS: Alkaline Phosphatase 83 U/L (45-117)
[2017-10-29 02:05] LABS: Glucose,Random 518 mg/dL (74-106)
[2017-10-29] MEDS ORDERED: Sodium Chlor 0.9% Inj 500 ML IV.SIG ONE (03:10)
--- NOTE | 2017-10-29 10:23 | ED ---
HPI - Psych - General Source: patient, old records reviewed Mode of arrival: ambulatory Limitations: no limitations - History of Present Illness MD complaint: suicidal ideation Onset (ago): day(s) Duration: constant History of same: Yes Relieving factors: none Exacerbating factors: none Context: other (No stressors reported) Associated psychiatric symptoms: depression, suicidal ideation Associated symptoms: denies other symptoms Treatments prior to arrival: none If self harm: admits thoughts of self harm, has plan - General Chief Complaint: Psychiatric Symptoms Stated Complaint: Suicidal ideations x 5 days Time Seen by Provider: 10/29/17 10:05 - History of Present Illness HPI Narrative: History of Present Illness HPI Narrative: 42-year-old, single, never , female with reported hx of depression, PTSD, anxiety, record hx of adjustment disorder who presents to the emergency department voluntarily stating that she has had increase in psychiatric symptoms since Friday and that she wants to with a plan to cut her wrists. The patient was placed under a BA by ED provider, Dr. Yudith Soares. Patient states she decided come to the emergency room instead of acting on her plan. Patient admits to drinking alcohol tonight although denies that she has been drinking on any consistent basis. Patient has history of diabetes and has not been taking her medications to treat her diabetes. Patient did not take her evening dose of insulin. Suicidal ideation started on Friday. Denies any significant stressors as well as denying that she is drinking alcohol on a daily basis. Reports medication compliance. EMR reviewed. The patient was admitted to [facility] on May of 2017. At that time she was homeless and threatened that if she were discharged from our hospital she would jump in front of traffic. According to notes from that admission patient was demonstrating " borderline personality traits with drug seeking behavior, manipulation and staff splitting". . BAL on arrival 93. Elevated blood glucose. ED provider has addressed and will have hospitalist consulted to follow during psychiatric hospitalization. Patient is seen. Asleep but awakens easily. Speech is clear and logical, of normal rate and tone. Mood is irritable. Reports feels increasingly depressed depressed, hopeless, interrupted and inconsistent sleep pattern and states that she stayed awake Friday and Friday all night long. Also reports decreased appetite and decreased level of energy. Continues to endorse suicidal ideation with plan of cutting her wrists although she contracts for safety while in the hospital. There is no psychosis, no delusions and no paranoia. (Samantha Hdz) - Related Data Home Medications Medication Instructions Recorded Confirmed hydroxyzine pamoate 50 mg PO QID PRN 10/02/17 10/29/17 insulin asp prt-insulin aspart 1 sliding scale dose SUB-Q UD 10/02/17 10/29/17 [Novolog Mix 70-30 U-100 Insuln] omeprazole magnesium [Prilosec OTC] 40 mg PO DAILY 10/02/17 10/29/17 oxycodone 10 mg PO Q4-6H PRN 10/02/17 10/29/17 venlafaxine [Effexor XR] 150 mg PO DAILY 10/02/17 10/29/17 Previous Rx's Medication Instructions Recorded ibuprofen 800 mg PO Q8H PRN #20 tab 10/02/17 Allergies Allergy/AdvReac Type Severity Reaction Status Date / Time ciprofloxacin Allergy Unknown Edema Verified 10/29/17 01:06 hydromorphone Allergy Unknown Unconscious Verified 10/29/17 01:06 Penicillins Allergy Unknown Anaphylaxis Verified 10/29/17 01:06 PMFSH - History History Provided By: Patient - Medical History Medical History: Medical History (Last Reviewed 10/29/17 @ 01:09 by Yudith Soares MD) History of chronic pain Hx of anxiety disorder Hx of diabetes mellitus Hx of hysterectomy Hx of major depression - Surgical History Surgical History: Surgical History (Last Reviewed 10/29/17 @ 01:09 by Yudith Soares MD) History of Hx of cholecystectomy - Tobacco History Tobacco Use In Past 30 Days: Yes Smoking Status: Current every day smoker Tobacco Type: Cigarettes - Alcohol History How Often Do You Have a Drink Containing Alcohol: 2 to 3 times a week - Substance Use History Substance History: Active Abuse - Substance Use Type Marijuana Status: Active Route Used: Inhalation Frequency: as needed Reason for Use: Calm Down - Travel History Recent Travel in the [place] Within the Last 8 Weeks: No Recent Travel Out of the Country Within the Last 8 Weeks: No - Immunization History Tetanus Immunization: Unsure Hx Influenza Vaccine This Season: Yes Psychiatric History - Psychiatric History Psychiatric Treatment History: History of Psychiatric Treatment, History of Hospitalization in a Psychiatric Facility History of Inpatient Treatment: Yes Firearms in Home: No - Psychiatric History Patient was last admitted to [facility] psychiatric unit in May 2017. This was her first admission to our facility. Reports multiple previous admissions while she was living in [place]. Patient also reports multiple' s previous suicide gestures and attempts including overdosing on her medications and cutting her wrist with the last one being in 2001. She is currently not under the care of a psychiatrist and her primary care physician is prescribing her psychiatric medications. (Samantha Hdz) Physical Exam - General Limitations: no limitations Mental Status Examination Appearance: Disheveled Consciousness: Alert Orientation: x4 Motor Activity: Normal gait Speech: Unremarkable Language: Adequate Fund of Knowledge: Adequate Attention and Concentration: Adequate Memory: Unremarkable Mood: Sad, Irritable Affect: Appropriate Thought Process & Associations: Intact, Logical, Goal directed Thought Content: Appropriate Hallucination Type: None Delusion Type: None Suicidal Ideation: Yes Suicidal Plan: Yes Suicidal Intention: No Homicidal Ideation: No Homicidal Plan: No Homicidal Intention: No Insight: Fair Judgment: Impulsive Initial Documented Vital Signs Temperature 98.7 F 10/29/17 00:49 Pulse Rate 114 H 10/29/17 00:49 Respiratory Rate 16 10/29/17 00:49 Blood Pressure 138/91 H 10/29/17 00:49 Pulse Oximetry 97 10/29/17 00:49 Last Documented Vital Signs Temperature 98.6 F 10/29/17 12:55 Pulse Rate 93 H 10/29/17 12:55 Respiratory Rate 18 10/29/17 12:55 Blood Pressure 108/68 10/29/17 12:55 Pulse Oximetry 99 10/29/17 12:55 [facility] - Psych - Diagnosis (1) Adjustment disorder with depressed mood Status: Acute - Lab Data Result diagrams: 10/29/17 01:20 10/29/17 01:20 - [facility] Narrative Medical decision making narrative: 42-year-old female with reported history of depression, anxiety, PTSD who initially presented to the ED on a voluntary basis reporting increase in symptoms of depression as well as suicidal ideation with plan to cut her wrist. Once the patient got to the ED she was placed under Hua act by ED provider. The patient continues to endorse suicidal ideation although contracts for safety here in the hospital. She believes that her current treatment plan is not currently addressing her continued mood lability. At this time the patient will be admitted to inpatient psychiatric unit for further observation and evaluation, safety, and medication adjustments. (Samantha Hdz) - Lab Data Lab Results 10/29/17 10/29/17 10/29/17 Range/Units 01:20 01:20 01:20 CBC w Diff Auto diff final WBC 8.8 (4.0-11.0) th/mm3 RBC 4.82 (4.00-5.30) mil/mm3 Hgb 15.3 (11.6-15.3) gm/dL Hct 44.9 (35.0-46.0) % MCV 93.2 (80.0-100.0) fL MCH 31.8 (27.0-34.0) pg MCHC 34.1 (32.0-36.0) % RDW 12.7 (11.6-17.2) % Plt Count 210 (150-450) th/mm3 MPV 8.6 (7.0-11.0) fL Neut % (Auto) 65.1 (16.0-70.0) % Lymph % (Auto) 25.7 (9.0-44.0) % [place] % (Auto) 4.0 (0.0-8.0) % Eos % (Auto) 3.2 (0.0-4.0) % Baso % (Auto) 2.0 (0.0-2.0) % Neut # (Auto) 5.6 (1.8-7.7) th/mm3 Lymph # (Auto) 2.3 (1.0-4.8) th/mm3 [place] # (Auto) 0.4 (0.0-0.9) th/mm3 Eos # (Auto) 0.3 (0.0-0.4) th/mm3 Baso # (Auto) 0.2 (0.0-0.2) th/mm3 WBC Differential . Differential Comment . Sodium 135 L (136-145) meq/L Potassium 3.9 (3.5-5.1) meq/L Chloride 99 (98-107) meq/L Carbon Dioxide 21.9 (21.0-32.0) meq/L Anion Gap 14 (5-15) meq/L BUN 19 H (7-18) mg/dL Creatinine 1.20 H (0.50-1.00) mg/dL Estimated GFR 49 L (>89) mL/min POC Glucose (68-110) mg/dl Random Glucose 518 H* (74-106) mg/dL Calcium 8.3 L (8.5-10.1) mg/dL Total Bilirubin 0.3 (0.2-1.0) mg/dL AST 13 L (15-37) U/L ALT 26 (10-53) U/L Alkaline Phosphatase 83 (45-117) U/L Total Protein 6.9 (6.4-8.2) g/dL Albumin 3.6 (3.4-5.0) g/dL TSH 2.890 (0.358-3.740) uIU/mL Urine Color (Yellw/Straw) Urine Clarity (Clear) Urine pH (5.0-8.5) Ur Specific [place] (1.002-1.035) Urine Protein (Neg-Trace) mg/dL Urine Glucose (UA) (Negative) mg/dL Urine Ketones (Negative) mg/dL Urine Occult Blood (Negative) Urine Nitrate (Negative) Urine Bilirubin (Negative) Urine Urobilinogen (Less than 2) mg/dL Ur Leukocyte Esterase (Negative) Urine RBC (0-3) /hpf Urine WBC (0-5) /hpf Ur Squamous Epith Cells (0-5) /hpf Micro UA Comment Urine Culture Comments Salicylates Less than 1.7 L (2.8-20.0) mg/dL Urine Opiates Screen (Neg) Acetaminophen Less than 2.0 L (10.0-30.0) mcg/mL Ur Barbiturates Screen (Neg) Ur Amphetamines Screen (Neg) U Benzodiazepines Scrn (Neg) Urine Cocaine Screen (Neg) U Cannabinoids Screen (Neg) Serum Alcohol 93 H (0-5) mg/dL 10/29/17 10/29/17 10/29/17 Range/Units 01:20 01:20 01:35 CBC w Diff WBC (4.0-11.0) th/mm3 RBC (4.00-5.30) mil/mm3 Hgb (11.6-15.3) gm/dL Hct (35.0-46.0) % MCV (80.0-100.0) fL MCH (27.0-34.0) pg MCHC (32.0-36.0) % RDW (11.6-17.2) % Plt Count (150-450) th/mm3 MPV (7.0-11.0) fL Neut % (Auto) (16.0-70.0) % Lymph % (Auto) (9.0-44.0) % [place] % (Auto) (0.0-8.0) % Eos % (Auto) (0.0-4.0) % Baso % (Auto) (0.0-2.0) % Neut # (Auto) (1.8-7.7) th/mm3 Lymph # (Auto) (1.0-4.8) th/mm3 [place] # (Auto) (0.0-0.9) th/mm3 Eos # (Auto) (0.0-0.4) th/mm3 Baso # (Auto) (0.0-0.2) th/mm3 WBC Differential Differential Comment Sodium (136-145) meq/L Potassium (3.5-5.1) meq/L Chloride (98-107) meq/L Carbon Dioxide (21.0-32.0) meq/L Anion Gap (5-15) meq/L BUN (7-18) mg/dL Creatinine (0.50-1.00) mg/dL Estimated GFR (>89) mL/min POC Glucose 512 H* (68-110) mg/dl Random Glucose (74-106) mg/dL Calcium (8.5-10.1) mg/dL Total Bilirubin (0.2-1.0) mg/dL AST (15-37) U/L ALT (10-53) U/L Alkaline Phosphatase (45-117) U/L Total Protein (6.4-8.2) g/dL Albumin (3.4-5.0) g/dL TSH (0.358-3.740) uIU/mL Urine Color Yellow (Yellw/Straw) Urine Clarity Clear (Clear) Urine pH 5.5 (5.0-8.5) Ur Specific [place] 1.020 (1.002-1.035) Urine Protein Negative (Neg-Trace) mg/dL Urine Glucose (UA) 1000 or greater H (Negative) mg/dL Urine Ketones Trace H (Negative) mg/dL Urine Occult Blood Negative (Negative) Urine Nitrate Negative (Negative) Urine Bilirubin Negative (Negative) Urine Urobilinogen 0.2 (Less than 2) mg/dL Ur Leukocyte Esterase Negative (Negative) Urine RBC 0-3 (0-3) /hpf Urine WBC 0-5 (0-5) /hpf Ur Squamous Epith Cells 6-10 H (0-5) /hpf Micro UA Comment Culture not ind Urine Culture Comments Culture not ind Salicylates (2.8-20.0) mg/dL Urine Opiates Screen Neg (Neg) Acetaminophen (10.0-30.0) mcg/mL Ur Barbiturates Screen Neg (Neg) Ur Amphetamines Screen Neg (Neg) U Benzodiazepines Scrn Neg (Neg) Urine Cocaine Screen Neg (Neg) U Cannabinoids Screen Neg (Neg) Serum Alcohol (0-5) mg/dL 10/29/17 10/29/17 10/29/17 Range/Units 02:58 03:58 04:00 CBC w Diff WBC (4.0-11.0) th/mm3 RBC (4.00-5.30) mil/mm3 Hgb (11.6-15.3) gm/dL Hct (35.0-46.0) % MCV (80.0-100.0) fL MCH (27.0-34.0) pg MCHC (32.0-36.0) % RDW (11.6-17.2) % Plt Count (150-450) th/mm3 MPV (7.0-11.0) fL Neut % (Auto) (16.0-70.0) % Lymph % (Auto) (9.0-44.0) % [place] % (Auto) (0.0-8.0) % Eos % (Auto) (0.0-4.0) % Baso % (Auto) (0.0-2.0) % Neut # (Auto) (1.8-7.7) th/mm3 Lymph # (Auto) (1.0-4.8) th/mm3 [place] # (Auto) (0.0-0.9) th/mm3 Eos # (Auto) (0.0-0.4) th/mm3 Baso # (Auto) (0.0-0.2) th/mm3 WBC Differential Differential Comment Sodium (136-145) meq/L Potassium (3.5-5.1) meq/L Chloride (98-107) meq/L Carbon Dioxide (21.0-32.0) meq/L Anion Gap (5-15) meq/L BUN (7-18) mg/dL Creatinine (0.50-1.00) mg/dL Estimated GFR (>89) mL/min POC Glucose 222 H 251 H 242 H (68-110) mg/dl Random Glucose (74-106) mg/dL Calcium (8.5-10.1) mg/dL Total Bilirubin (0.2-1.0) mg/dL AST (15-37) U/L ALT (10-53) U/L Alkaline Phosphatase (45-117) U/L Total Protein (6.4-8.2) g/dL Albumin (3.4-5.0) g/dL TSH (0.358-3.740) uIU/mL Urine Color (Yellw/Straw) Urine Clarity (Clear) Urine pH (5.0-8.5) Ur Specific [place] (1.002-1.035) Urine Protein (Neg-Trace) mg/dL Urine Glucose (UA) (Negative) mg/dL Urine Ketones (Negative) mg/dL Urine Occult Blood (Negative) Urine Nitrate (Negative) Urine Bilirubin (Negative) Urine Urobilinogen (Less than 2) mg/dL Ur Leukocyte Esterase (Negative) Urine RBC (0-3) /hpf Urine WBC (0-5) /hpf Ur Squamous Epith Cells (0-5) /hpf Micro UA Comment Urine Culture Comments Salicylates (2.8-20.0) mg/dL Urine Opiates Screen (Neg) Acetaminophen (10.0-30.0) mcg/mL Ur Barbiturates Screen (Neg) Ur Amphetamines Screen (Neg) U Benzodiazepines Scrn (Neg) Urine Cocaine Screen (Neg) U Cannabinoids Screen (Neg) Serum Alcohol (0-5) mg/dL 10/29/17 Range/Units 04:54 CBC w Diff WBC (4.0-11.0) th/mm3 RBC (4.00-5.30) mil/mm3 Hgb (11.6-15.3) gm/dL Hct (35.0-46.0) % MCV (80.0-100.0) fL MCH (27.0-34.0) pg MCHC (32.0-36.0) % RDW (11.6-17.2) % Plt Count (150-450) th/mm3 MPV (7.0-11.0) fL Neut % (Auto) (16.0-70.0) % Lymph % (Auto) (9.0-44.0) % [place] % (Auto) (0.0-8.0) % Eos % (Auto) (0.0-4.0) % Baso % (Auto) (0.0-2.0) % Neut # (Auto) (1.8-7.7) th/mm3 Lymph # (Auto) (1.0-4.8) th/mm3 [place] # (Auto) (0.0-0.9) th/mm3 Eos # (Auto) (0.0-0.4) th/mm3 Baso # (Auto) (0.0-0.2) th/mm3 WBC Differential Differential Comment Sodium (136-145) meq/L Potassium (3.5-5.1) meq/L Chloride (98-107) meq/L Carbon Dioxide (21.0-32.0) meq/L Anion Gap (5-15) meq/L BUN (7-18) mg/dL Creatinine (0.50-1.00) mg/dL Estimated GFR (>89) mL/min POC Glucose 269 H (68-110) mg/dl Random Glucose (74-106) mg/dL Calcium (8.5-10.1) mg/dL Total Bilirubin (0.2-1.0) mg/dL AST (15-37) U/L ALT (10-53) U/L Alkaline Phosphatase (45-117) U/L Total Protein (6.4-8.2) g/dL Albumin (3.4-5.0) g/dL TSH (0.358-3.740) uIU/mL Urine Color (Yellw/Straw) Urine Clarity (Clear) Urine pH (5.0-8.5) Ur Specific [place] (1.002-1.035) Urine Protein (Neg-Trace) mg/dL Urine Glucose (UA) (Negative) mg/dL Urine Ketones (Negative) mg/dL Urine Occult Blood (Negative) Urine Nitrate (Negative) Urine Bilirubin (Negative) Urine Urobilinogen (Less than 2) mg/dL Ur Leukocyte Esterase (Negative) Urine RBC (0-3) /hpf Urine WBC (0-5) /hpf Ur Squamous Epith Cells (0-5) /hpf Micro UA Comment Urine Culture Comments Salicylates (2.8-20.0) mg/dL Urine Opiates Screen (Neg) Acetaminophen (10.0-30.0) mcg/mL Ur Barbiturates Screen (Neg) Ur Amphetamines Screen (Neg) U Benzodiazepines Scrn (Neg) Urine Cocaine Screen (Neg) U Cannabinoids Screen (Neg) Serum Alcohol (0-5) mg/dL
[2017-10-29] MEDS ORDERED: Aluminum/Magnesium/Simethacone Susp 30 ML UDC PO PRN (10:41)
[2017-10-29] MEDS ORDERED: Insulin Aspart Prot 70/30 1,000 UNITS/10 ML Vial SQ SCH (11:00)
[2017-10-29] MEDS ORDERED: Insulin Detemir Inj 1,000 UNIT/10 ML Vial SQ SCH (12:00)
[2017-10-29] MEDS ORDERED: Dextrose 50% in Water 50 ML Vial IV.PUSH PRN (17:04)
--- NOTE | 2017-10-29 18:38 | P.CONIM ---
History of Present Illness Primary Care Provider: Darien Varma Family Provider: Darien Varma History of Present Illness: 42-year-old female who presented due to suicidal ideation. She reports her last dose of insulin was on Friday. She denies any intentional overdose. He denies any fevers, chills, chest pain, shortness breath. She does report chronic smoker's cough. She also reports a yeast infection for the past week. Patient reports chronic back pain for which she says she receives oxycodone. Review of Systems All other systems reviewed negative except as stated in HPI PMFSH - History History Provided By: Patient - Medical History Medical History: Medical History (Last Reviewed 10/29/17 @ 01:09 by Yudith Soares MD) History of chronic pain Hx of anxiety disorder Hx of diabetes mellitus Hx of hysterectomy Hx of major depression - Surgical History Surgical History: Surgical History (Last Reviewed 10/29/17 @ 01:09 by Yudith Soares MD) History of Hx of cholecystectomy - Family History Family History: Family History (Last Updated 10/29/17 @ 18:30 by Jerry Stark MD) Father CAD (coronary artery disease) Mother Family estrangement - Tobacco History Second Hand Smoke Exposure: Yes Tobacco Use In Past 30 Days: Yes Smoking Status: Current every day smoker Tobacco Type: Cigarettes - Alcohol History How Often Do You Have a Drink Containing Alcohol: Monthly or less - Substance Use History Substance History: Active Abuse - Substance Use Type Marijuana Type: Marijuana Status: Active Route Used: By Mouth, Inhalation Frequency: "not very often" Reason for Use: Calm Down - Travel History Recent Travel in the [facility] Within the Last 8 Weeks: No Recent Travel Out of the Country Within the Last 8 Weeks: No - Immunization History Tetanus Immunization: <5 Years Hx Influenza Vaccine This Season: No Medications and Allergies Active Medications: Active Medications Al Hydrox/Mg Hydrox/Simethicone (Mag-Al Plus Susp Liq) 30 ml PO Q6H PRN PRN Reason: DYSPEPSIA Al Hydroxide/Mg Hydroxide (Milk Of Magnesia Liq) 30 ml PO Q12H PRN PRN Reason: Mild Constipation Dextrose (D50w Vial) 50 ml IV.PUSH UNSCH PRN PRN Reason: PER HYPOGLYCEMIA PROTOCOL Glucagon (Glucagon Inj) 1 mg OTHER PRN PRN PRN Reason: for Hypoglycemia Protocol Hydroxyzine Pamoate (Vistaril) 50 mg PO QID PRN PRN Reason: Anxiety Insulin Detemir (Levemir Inj) 6 unit SQ BID MICK Last Admin: 10/29/17 14:47 Dose: 6 unit Insulin Human Regular (Novolin R Correctional Sugar Inj) 0 units SQ ACHS MICK; Protocol Pantoprazole Sodium (Protonix) 40 mg PO DAILY MICK Venlafaxine HCl (Effexor Xr) 150 mg PO DAILY [facility] Allergies Allergy/AdvReac Type Severity Reaction Status Date / Time ciprofloxacin Allergy Unknown Edema Verified 10/29/17 01:06 hydromorphone Allergy Unknown Unconscious Verified 10/29/17 01:06 Penicillins Allergy Unknown Anaphylaxis Verified 10/29/17 01:06 Home Medications Medication Instructions Recorded Confirmed Type hydroxyzine pamoate 50 mg PO QID PRN 10/02/17 10/29/17 History insulin asp prt-insulin aspart 1 sliding scale dose SUB-Q UD 10/02/17 10/29/17 History [Novolog Mix 70-30 U-100 Insuln] omeprazole magnesium [Prilosec OTC] 40 mg PO DAILY 10/02/17 10/29/17 History oxycodone 10 mg PO Q4-6H PRN 10/02/17 10/29/17 History venlafaxine [Effexor XR] 150 mg PO DAILY 10/02/17 10/29/17 History Exam Vital signs: Vital Signs 10/29/17 00:49 10/29/17 04:43 10/29/17 04:58 Temperature 98.7 F Pulse Rate 114 H 97 H 99 H Respiratory Rate 16 20 16 Blood Pressure 138/91 H 95/59 L 126/59 L Pulse Oximetry 97 95 97 10/29/17 11:48 10/29/17 12:55 Temperature 98.6 F Pulse Rate 80 93 H Respiratory Rate 16 18 Blood Pressure 115/64 108/68 Pulse Oximetry 95 99 Intake & Output 10/28/17 10/29/17 10/29/17 18:59 06:59 18:59 Intake Total 1000 / 1000 Balance 1000 / 1000 Weight 71 kg 78 kg Intake: IV 1000 / 1000 NS Inj 1,000 ML @ Wide Open IV. 1000 / 1000 SIG BOLUS ONE Rx#:[id number] Other: Weight On Admission 78 kg Narrative: GENERAL: patient seen and examined nurse present. Patient appears comfortable. SKIN: Warm and dry. HEAD: Normocephalic. EYES: No scleral icterus. No injection or drainage. NECK: Supple, trachea midline. No JVD. CARDIOVASCULAR: Regular rate and rhythm without murmurs, gallops, or rubs. RESPIRATORY: Breath sounds equal bilaterally. No accessory muscle use. GASTROINTESTINAL: Abdomen soft, non-tender, nondistended. MUSCULOSKELETAL: No cyanosis, or edema. BACK: Nontender without obvious deformity. No CVA tenderness. Results - Labs CBC & Chem 7: 10/29/17 01:20 10/29/17 01:20 Labs: Laboratory Results - last 24 hr 10/29/17 10/29/17 10/29/17 01:20 01:20 01:20 CBC w Diff Auto diff final WBC 8.8 RBC 4.82 Hgb 15.3 Hct 44.9 MCV 93.2 MCH 31.8 MCHC 34.1 RDW 12.7 Plt Count 210 MPV 8.6 Neut % (Auto) 65.1 Lymph % (Auto) 25.7 [place] % (Auto) 4.0 Eos % (Auto) 3.2 Baso % (Auto) 2.0 Neut # (Auto) 5.6 Lymph # (Auto) 2.3 [place] # (Auto) 0.4 Eos # (Auto) 0.3 Baso # (Auto) 0.2 WBC Differential . Differential Comment . Sodium 135 L Potassium 3.9 Chloride 99 Carbon Dioxide 21.9 Anion Gap 14 BUN 19 H Creatinine 1.20 H Estimated GFR 49 L POC Glucose Random Glucose 518 H* Calcium 8.3 L Total Bilirubin 0.3 AST 13 L ALT 26 Alkaline Phosphatase 83 Total Protein 6.9 Albumin 3.6 TSH 2.890 Urine Color Urine Clarity Urine pH Ur Specific [place] Urine Protein Urine Glucose (UA) Urine Ketones Urine Occult Blood Urine Nitrate Urine Bilirubin Urine Urobilinogen Ur Leukocyte Esterase Urine RBC Urine WBC Ur Squamous Epith Cells Micro UA Comment Urine Culture Comments Salicylates Less than 1.7 L Urine Opiates Screen Acetaminophen Less than 2.0 L Ur Barbiturates Screen Ur Amphetamines Screen U Benzodiazepines Scrn Urine Cocaine Screen U Cannabinoids Screen Serum Alcohol 93 H 10/29/17 10/29/17 10/29/17 01:20 01:20 01:35 CBC w Diff WBC RBC Hgb Hct MCV MCH MCHC RDW Plt Count MPV Neut % (Auto) Lymph % (Auto) [place] % (Auto) Eos % (Auto) Baso % (Auto) Neut # (Auto) Lymph # (Auto) [place] # (Auto) Eos # (Auto) Baso # (Auto) WBC Differential Differential Comment Sodium Potassium Chloride Carbon Dioxide Anion Gap BUN Creatinine Estimated GFR POC Glucose 512 H* Random Glucose Calcium Total Bilirubin AST ALT Alkaline Phosphatase Total Protein Albumin TSH Urine Color Yellow Urine Clarity Clear Urine pH 5.5 Ur Specific [place] 1.020 Urine Protein Negative Urine Glucose (UA) 1000 or greater H Urine Ketones Trace H Urine Occult Blood Negative Urine Nitrate Negative Urine Bilirubin Negative Urine Urobilinogen 0.2 Ur Leukocyte Esterase Negative Urine RBC 0-3 Urine WBC 0-5 Ur Squamous Epith Cells 6-10 H Micro UA Comment Culture not ind Urine Culture Comments Culture not ind Salicylates Urine Opiates Screen Neg Acetaminophen Ur Barbiturates Screen Neg Ur Amphetamines Screen Neg U Benzodiazepines Scrn Neg Urine Cocaine Screen Neg U Cannabinoids Screen Neg Serum Alcohol 10/29/17 10/29/17 10/29/17 02:58 03:58 04:00 CBC w Diff WBC RBC Hgb Hct MCV MCH MCHC RDW Plt Count MPV Neut % (Auto) Lymph % (Auto) [place] % (Auto) Eos % (Auto) Baso % (Auto) Neut # (Auto) Lymph # (Auto) [place] # (Auto) Eos # (Auto) Baso # (Auto) WBC Differential Differential Comment Sodium Potassium Chloride Carbon Dioxide Anion Gap BUN Creatinine Estimated GFR POC Glucose 222 H 251 H 242 H Random Glucose Calcium Total Bilirubin AST ALT Alkaline Phosphatase Total Protein Albumin TSH Urine Color Urine Clarity Urine pH Ur Specific [place] Urine Protein Urine Glucose (UA) Urine Ketones Urine Occult Blood Urine Nitrate Urine Bilirubin Urine Urobilinogen Ur Leukocyte Esterase Urine RBC Urine WBC Ur Squamous Epith Cells Micro UA Comment Urine Culture Comments Salicylates Urine Opiates Screen Acetaminophen Ur Barbiturates Screen Ur Amphetamines Screen U Benzodiazepines Scrn Urine Cocaine Screen U Cannabinoids Screen Serum Alcohol 10/29/17 10/29/17 04:54 14:43 CBC w Diff WBC RBC Hgb Hct MCV MCH MCHC RDW Plt Count MPV Neut % (Auto) Lymph % (Auto) [place] % (Auto) Eos % (Auto) Baso % (Auto) Neut # (Auto) Lymph # (Auto) [place] # (Auto) Eos # (Auto) Baso # (Auto) WBC Differential Differential Comment Sodium Potassium Chloride Carbon Dioxide Anion Gap BUN Creatinine Estimated GFR POC Glucose 269 H 297 H Random Glucose Calcium Total Bilirubin AST ALT Alkaline Phosphatase Total Protein Albumin TSH Urine Color Urine Clarity Urine pH Ur Specific [place] Urine Protein Urine Glucose (UA) Urine Ketones Urine Occult Blood Urine Nitrate Urine Bilirubin Urine Urobilinogen Ur Leukocyte Esterase Urine RBC Urine WBC Ur Squamous Epith Cells Micro UA Comment Urine Culture Comments Salicylates Urine Opiates Screen Acetaminophen Ur Barbiturates Screen Ur Amphetamines Screen U Benzodiazepines Scrn Urine Cocaine Screen U Cannabinoids Screen Serum Alcohol Assessment and Plan - Plan Suicidal ideation Depression Management as per psychiatry Diabetes mellitus. Hyperglycemia in the 500s on admission. Continue home medication regimen, diabetic diet [place] infection. Self-reported. Prescribe antifungal Chronic pain. Discussed with nurse will call patient's pharmacy to verify medications. Tobacco abuse. Cessation counseling provided. Discussed Condition With: patient, nurse
[2017-10-29] MEDS ORDERED: Insulin Detemir Inj 1,000 UNIT/10 ML Vial SQ ONE (18:40)
[2017-10-29] MEDS: Insulin NovoLIN Regular Correctional Sugar Inj SQ SCH (20:40)
--- NOTE | 2017-10-29 21:41 | ECG ---
Date Performed: 10/29/2017 Time Performed: 01:19:24 PTAGE: 42 years EKG: SINUS TACHYCARDIA ABNORMAL RHYTHM ECG INTERPRETATION BASED ON A DEFAULT AGE OF 38 YEARS NO PREVIOUS TRACING Compared to previous tracing, rate has increased DOCTOR: Nabil Olivares Interpretating Date/Time 10/29/2017 21:39:49
[2017-10-30] MEDS: Insulin NovoLIN Regular Correctional Sugar Inj SQ SCH ×2 (08:15→11:45)
[2017-10-30] MEDS ORDERED: Insulin Detemir Inj 1,000 UNIT/10 ML Vial SQ SCH (09:00)
[2017-10-30] MEDS ORDERED: Non-Formulary Drug (Venlafaxine [Effexor Xr] 150 MG) PO SCH (09:00)
[2017-10-30] MEDS ORDERED: Venlafaxine XR 75 MG Capsule PO SCH (09:00)
[2017-10-30] MEDS ORDERED: Haloperidol Inj 5 MG/ML Ampul IV.PUSH PRN (11:16)
[2017-10-30] MEDS ORDERED: LORazepam 1 MG Tablet PO PRN (11:16)
--- NOTE | 2017-10-30 11:18 | P.PN ---
Subjective Interval history: Follow up on patient with suicidal ideation. Patient seen and examined. 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 Patient states she takes 18u of Lantus BID and sliding scale of 8-10u before meals at home. She denies any other medical complaints. Physical Exam Vital signs: Vital Signs 10/29/17 11:48 10/29/17 12:55 10/30/17 05:41 Temperature 98.6 F 98.1 F Pulse Rate 80 93 H 65 Respiratory Rate 16 18 16 Blood Pressure 115/64 108/68 112/66 Pulse Oximetry 95 99 98 Intake & Output 10/29/17 10/30/17 10/30/17 18:59 06:59 18:59 Weight 78 kg Other: Weight On Admission 78 kg Narrative: GENERAL: WDWN overweight female, not in any acute distress. Awake and alert. Appears comfortable. SKIN: Warm and dry. No generalized rash. HEENT: Atraumatic. Normocephalic. Pupils equal and round. No scleral icterus. No injection or drainage. No nasal bleeding or discharge. Mucous membranes pink and moist. NECK: Trachea midline. CARDIOVASCULAR: Regular rate and rhythm. RESPIRATORY: No accessory muscle use. Clear to auscultation. Breath sounds equal bilaterally. GASTROINTESTINAL: Abdomen soft, non-tender, nondistended. +BS. MUSCULOSKELETAL: Extremities without clubbing, cyanosis, or edema. No obvious deformities. NEUROLOGICAL: Awake and alert. No obvious cranial nerve deficits. Motor grossly within normal limits. Nonfocal. Normal speech. PSYCHIATRIC: Calm and cooperative. Results - Labs CBC & Chem 7: 10/29/17 01:20 10/29/17 01:20 Laboratory Results - last 24 hr 10/29/17 10/29/17 10/30/17 14:43 19:52 05:52 POC Glucose 297 H 363 H 265 H 10/30/17 07:54 POC Glucose 307 H Assessment and Plan - Plan 42-year-old female who presented due to suicidal ideation. Depression Suicidal ideation -Management per psychiatric team Diabetes Mellitus, uncontrolled Hyperglycemia with BS 512 on admission Patient takes Lantus 18u BID and sliding scale 8-10u TID before meals at home -Continue on diabetic diet -Obtain A1c -Consult accounts payable manager for diabetic education -10/30 BS 307 this am. Given 10u Novolin. -Continue on Levemir 14u BID(patient has not received this am dose of Levemir due to problems with the freezer). Add 5u Aspart preprandial coverage TID. -continue with accuchecks and ISS -continue to monitor blood sugars and adjust insulin regimen accordingly Yeast infection -Monistat Chronic back pain Neuropathy DDD lumbar spine -Verified on EForsce patient prescribed Oxycodone 10mg BID, will resume Ongoing tobaccoism -Counseled on smoking cessation ?EtOH abuse serum alcohol level 93 on admission -[facility] protocol -monitor for signs of withdrawal -Thiamine/Folate/MVI daily DVT prophylaxis -Patient is ambulatory Code Status: FULL Discussed Condition With: patient, nursing staff, Dr. Crowder
[2017-10-30] MEDS ORDERED: Folic Acid 1 MG Tablet PO SCH (12:00)
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
[2017-10-30 12:05] LABS: Anion Gap 6 meq/L (5-15); Blood Urea Nitrogen 13 mg/dL (7-18); Calcium 8.9 mg/dL (8.5-10.1); Carbon Dioxide 27.5 meq/L (21.0-32.0); Chloride 104 meq/L (98-107); Cholesterol 209 mg/dL (120-200); Glomerular Filtration Rate Greater Than 89 mL/min (>89); Glucose,Random 288 mg/dL (74-106); Potassium 4.1 meq/L (3.5-5.1); Sodium 137 meq/L (136-145)
[2017-10-30 12:13] LABS: Chol/HDL Ratio 5.52 Ratio; HDL Cholesterol 37.8 mg/dL (40.0-60.0); LDL Cholesterol,Calculated 110 mg/dL (0-99); Triglycerides 306 mg/dL (42-150)
[2017-10-30 17:07] LABS: Hemoglobin A1c 12.3 % (4.3-6.0)
== END 2017-10-30 15:15 | disposition home or self-care (01) ==
LOC: PHED 00:45 → NEDA 11:11 → H260 12:13 → H270 15:30
PROVIDERS: ADMIT Psychiatry & Neurology Psychiatry; ATTEND Psychiatry & Neurology Psychiatry

== ENCOUNTER 2018-05-02 18:47 | Inpatient (IN) ==
--- NOTE | 2018-05-02 20:14 | ED ---
HPI General Chief complaint: Psychiatric Symptoms Stated complaint: Vol Time Seen by Provider: 05/02/18 19:58 Source: patient Mode of arrival: ambulatory Limitations: no limitations History of Present Illness HPI narrative: 42-year-old female with history of major depressive disorder on Effexor, adjustment disorder with depressed mood, diabetes, here voluntarily for evaluation of suicidal ideation. The patient tells me that for the last 2 days she has had thoughts of suicide. She plans to cut herself in an attempt to bleed to . She has history of cutting. She denies toxic ingestions or self injury leading up to her visit today. No physical complaints. She tells me that her rent is due in 2 days and she does not get paid before then, and that she will not be able to afford her rent. Although she tells me that this is not the reason for her recent suicidal ideation, this is making her depression worse for her. She denies alcohol or illicit drug use. Related Data Home Medications Medication Instructions Recorded Confirmed oxycodone 10 mg PO BID PRN 10/02/17 05/02/18 Novolog U-100 Insulin aspart 8 - 10 units SUBDERMAL TIDAC 12/03/17 05/02/18 insulin glargine [Lantus U-100 18 unit SUBCUT BID 12/03/17 05/02/18 Insulin] metformin 1,000 mg PO BID 12/03/17 05/02/18 venlafaxine [Effexor XR] 150 mg PO DAILY 12/03/17 05/02/18 Previous Rx's Medication Instructions Recorded methocarbamol [Robaxin] 500 mg PO Q6H PRN #20 tab 12/03/17 Allergies Allergy/AdvReac Type Severity Reaction Status Date / Time ciprofloxacin Allergy Unknown Edema Verified 05/02/18 19:24 hydromorphone Allergy Unknown Unconscious Verified 05/02/18 19:24 Penicillins Allergy Unknown Anaphylaxis Verified 05/02/18 19:24 Review of Systems ROS: all other systems reviewed are negative [facility] Medical History Medical History COPD (chronic obstructive pulmonary disease) (Acute) History of chronic pain (Acute) Hx of anxiety disorder (Acute) Hx of diabetes mellitus (Acute) Hx of hysterectomy (Acute) Hx of major depression (Acute) Surgical History Surgical History History of (Acute) Hx of cholecystectomy (Acute) Family History Family History Father CAD (coronary artery disease) Mother Family estrangement Social History Social History Substance History: Past History Second Hand Smoke Exposure: Yes Smoking Status: Current every day smoker Tobacco Type: Cigarettes How Often Do You Have a Drink Containing Alcohol: Never Recent Travel in [facility] within the Last 8 Weeks: No Recent Out of Country Travel within the Last 8 Weeks: No Substance Abuse Detail Opiates: Substance Use Status: Active Route Used Substance Abuse: By Mouth Reason for Use: Calm Down Marijuana: Substance Use Status: Active Route Used Substance Abuse: By Mouth Reason for Use: Calm Down Immunization History Tetanus Immunization: <5 Years Tetanus Immunization Year if Known: 2017 Exam Narrative Exam Narrative: GENERAL: Well-developed, well-nourished, tearful, calm, cooperative no apparent distress. SKIN: Focused skin assessment warm/dry. HEAD: Atraumatic. Normocephalic. EYES: Pupils equal and round. No scleral icterus. No injection or drainage. ENT: Mucous membranes pink and moist. NECK: Trachea midline. No JVD. CARDIOVASCULAR: Regular rate and rhythm. No murmur appreciated. RESPIRATORY: No accessory muscle use. Clear to auscultation. Breath sounds equal bilaterally. GASTROINTESTINAL: Abdomen soft, non-tender, nondistended. MUSCULOSKELETAL: No obvious deformities. No clubbing. No cyanosis. No edema. NEUROLOGICAL: Awake and alert. No obvious cranial nerve deficits. Motor grossly within normal limits. Normal speech. PSYCHIATRIC: Depressed mood, tearful, calm, cooperative; insight and judgment normal. Course Initial Documented Vital Signs Temperature 98.5 F 05/02/18 19:24 Pulse Rate 105 H 05/02/18 19:24 Respiratory Rate 18 05/02/18 19:24 Blood Pressure 113/75 05/02/18 19:24 Pulse Oximetry 99 05/02/18 19:24 Last Documented Vital Signs Temperature 97.8 F 05/03/18 06:02 Pulse Rate 84 05/03/18 05:38 Respiratory Rate 16 05/03/18 06:02 Blood Pressure 107/57 L 05/03/18 06:02 Pulse Oximetry 100 05/03/18 06:02 Medical Decision Making MDM Narrative Medical decision making narrative: The patient was initially evaluated by me in triage as part of the RMA process. Initial workup ordered by me, and the patient will be transferred to J pod where the lab results for medical clearance for psychiatric evaluation will be followed by the PA. Because of believe that there is a risk that the patient will follow through with self-harm and/or suicide, I have placed her under a Hua act. The circumstances of a Hua act were discussed with the patient. Medical Screen Exam Complete: Yes Emergency Medical Condition: Yes Differential Diagnosis Differential Diagnosis: Depression, suicidal ideation, mood disorder, personality disorder Lab Data Result diagrams: 05/02/18 20:00 05/02/18 20:00 Lab Results 05/02/18 05/02/18 05/02/18 Range/Units 20:00 20:00 20:00 WBC 11.1 H (4.0-11.0) th/mm3 RBC 4.98 (4.00-5.30) mil/mm3 Hgb 15.6 H (11.6-15.3) gm/dL Hct 45.2 (35.0-46.0) % MCV 90.8 (80.0-100.0) fL MCH 31.4 (27.0-34.0) pg MCHC 34.5 (32.0-36.0) % RDW 13.3 (11.6-17.2) % Plt Count 215 (150-450) th/mm3 MPV 8.9 (7.0-11.0) fL Neut % (Auto) 73.3 H (16.0-70.0) % Lymph % (Auto) 18.6 (9.0-44.0) % Door % (Auto) 4.7 (0.0-8.0) % Eos % (Auto) 2.8 (0.0-4.0) % Baso % (Auto) 0.6 (0.0-2.0) % Neut # (Auto) 8.1 H (1.8-7.7) th/mm3 Lymph # (Auto) 2.1 (1.0-4.8) th/mm3 Door # (Auto) 0.5 (0.0-0.9) th/mm3 Eos # (Auto) 0.3 (0.0-0.4) th/mm3 Baso # (Auto) 0.1 (0.0-0.2) th/mm3 WBC Differential . Differential Comment Auto diff final Sodium 134 L (136-145) meq/L Potassium 3.7 (3.5-5.1) meq/L Chloride 100 (98-107) meq/L Carbon Dioxide 20.8 L (21.0-32.0) meq/L Anion Gap 13 (5-15) meq/L BUN 18 (7-18) mg/dL Creatinine 0.79 (0.50-1.00) mg/dL Estimated GFR 79 L (>89) mL/min POC Glucose (68-110) mg/dl Random Glucose 352 H (74-106) mg/dL Calcium 9.3 (8.5-10.1) mg/dL Magnesium 2.2 (1.5-2.5) mg/dL Total Bilirubin 0.5 (0.2-1.0) mg/dL AST 6 L (15-37) U/L ALT 18 (10-53) U/L Alkaline Phosphatase 78 (45-117) U/L Total Protein 7.4 (6.4-8.2) g/dL Albumin 4.0 (3.4-5.0) g/dL TSH 1.270 (0.358-3.740) uIU/mL Salicylates 1.8 L (2.8-20.0) mg/dL Urine Opiates Screen (Neg) Acetaminophen Less than 2.0 L (10.0-30.0) mcg/mL Ur Barbiturates Screen (Neg) Ur Amphetamines Screen (Neg) U Benzodiazepines Scrn (Neg) Urine Cocaine Screen (Neg) U Cannabinoids Screen (Neg) Serum Alcohol 55 H (0-5) mg/dL 05/02/18 05/03/18 05/03/18 Range/Units 20:00 00:59 08:37 WBC (4.0-11.0) th/mm3 RBC (4.00-5.30) mil/mm3 Hgb (11.6-15.3) gm/dL Hct (35.0-46.0) % MCV (80.0-100.0) fL MCH (27.0-34.0) pg MCHC (32.0-36.0) % RDW (11.6-17.2) % Plt Count (150-450) th/mm3 MPV (7.0-11.0) fL Neut % (Auto) (16.0-70.0) % Lymph % (Auto) (9.0-44.0) % Door % (Auto) (0.0-8.0) % Eos % (Auto) (0.0-4.0) % Baso % (Auto) (0.0-2.0) % Neut # (Auto) (1.8-7.7) th/mm3 Lymph # (Auto) (1.0-4.8) th/mm3 [place] # (Auto) (0.0-0.9) th/mm3 Eos # (Auto) (0.0-0.4) th/mm3 Baso # (Auto) (0.0-0.2) th/mm3 WBC Differential Differential Comment Sodium (136-145) meq/L Potassium (3.5-5.1) meq/L Chloride (98-107) meq/L Carbon Dioxide (21.0-32.0) meq/L Anion Gap (5-15) meq/L BUN (7-18) mg/dL Creatinine (0.50-1.00) mg/dL Estimated GFR (>89) mL/min POC Glucose 343 H 428 H (68-110) mg/dl Random Glucose (74-106) mg/dL Calcium (8.5-10.1) mg/dL Magnesium (1.5-2.5) mg/dL Total Bilirubin (0.2-1.0) mg/dL AST (15-37) U/L ALT (10-53) U/L Alkaline Phosphatase (45-117) U/L Total Protein (6.4-8.2) g/dL Albumin (3.4-5.0) g/dL TSH (0.358-3.740) uIU/mL Salicylates (2.8-20.0) mg/dL Urine Opiates Screen Neg (Neg) Acetaminophen (10.0-30.0) mcg/mL Ur Barbiturates Screen Neg (Neg) Ur Amphetamines Screen Neg (Neg) U Benzodiazepines Scrn Neg (Neg) Urine Cocaine Screen Neg (Neg) U Cannabinoids Screen Neg (Neg) Serum Alcohol (0-5) mg/dL Discharge Plan Discharge Disposition Patient Disposition: Sign Out(ED Internal Use Only) Discharge Condition Condition: Stable Discharge Order Discharge Orders: ED Use Only Admit Order (Routine); Ordered 05/02/18 Ordered By: Bradley Jaeger Discharge Details Diagnosis: Medical clearance for psychiatric admission Physicians Team ED Provider: Albino Noble Primary Care Provider: Shakira Apple Attending Provider: Bradley Jaeger Other Providers: Mahin Rowe Discharge Interventions Interventions: Vital Signs Last Done: 05/02/18 22:49 ED Discharge Assessment Last Done: 05/03/18 02:06 Status ED Status: Left Department Discharge Information Discharge Date/Time: 05/03/18 02:08
[2018-05-02 20:17] LABS: Baso # (Auto) 0.1 th/mm3 (0.0-0.2); Baso % (Auto) 0.6 % (0.0-2.0); Eos # (Auto) 0.3 th/mm3 (0.0-0.4); Eos % (Auto) 2.8 % (0.0-4.0); Hematocrit 45.2 % (35.0-46.0); Hemoglobin 15.6 gm/dL (11.6-15.3); Lymph # (Auto) 2.1 th/mm3 (1.0-4.8); Lymph % (Auto) 18.6 % (9.0-44.0); Mean Corpuscular HGB Conc 34.5 % (32.0-36.0); Mean Corpuscular Hemoglobin 31.4 pg (27.0-34.0); Mean Corpuscular Volume 90.8 fL (80.0-100.0); Mean Platelet Volume 8.9 fL (7.0-11.0); Mono # (Auto) 0.5 th/mm3 (0.0-0.9); Mono % (Auto) 4.7 % (0.0-8.0); Neut # (Auto) 8.1 th/mm3 (1.8-7.7); Neut % (Auto) 73.3 % (16.0-70.0); Platelet Count 215 th/mm3 (150-450); Red Blood Count 4.98 mil/mm3 (4.00-5.30); Red Cell Distribution Width 13.3 % (11.6-17.2); White Blood Count 11.1 th/mm3 (4.0-11.0)
[2018-05-02 20:29] LABS: Amphetamine Screen,Urine Neg (Neg); Barbiturate Screen,Urine Neg (Neg); Cannabinoid Screen,Urine Neg (Neg); Cocaine Screen,Urine Neg (Neg)
[2018-05-02 20:39] LABS: Anion Gap 13 meq/L (5-15); Aspartate Aminotransferase 6 U/L (15-37); Blood Urea Nitrogen 18 mg/dL (7-18); Calcium 9.3 mg/dL (8.5-10.1); Carbon Dioxide 20.8 meq/L (21.0-32.0); Chloride 100 meq/L (98-107); Glomerular Filtration Rate 79 mL/min (>89); Glucose,Random 352 mg/dL (74-106); Magnesium 2.2 mg/dL (1.5-2.5); Potassium 3.7 meq/L (3.5-5.1); Sodium 134 meq/L (136-145)
[2018-05-02 20:49] LABS: Alanine Aminotransferase 18 U/L (10-53); Alkaline Phosphatase 78 U/L (45-117); Opiate Screen,Urine Neg (Neg); Total Protein 7.4 g/dL (6.4-8.2)
[2018-05-02 20:50] LABS: Alcohol 55 mg/dL (0-5)
[2018-05-03] MEDS ORDERED: LORazepam 1 MG Tablet PO PRN (02:41)
[2018-05-03] MEDS ORDERED: Aluminum/Magnesium/Simethacone Susp 30 ML UDC PO PRN (02:41)
[2018-05-03] MEDS ORDERED: Acetaminophen 325 MG Tablet PO PRN (02:41)
[2018-05-03] MEDS ORDERED: Dextrose 50% in Water 50 ML Vial IV.PUSH PRN (12:19)
--- NOTE | 2018-05-03 13:26 | P.HPPSY ---
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 Express and informed consent means consent voluntarily given in writing, by a competent person, after sufficient explanation and disclosure of the subject matter involved to enable the person to make a knowing and willful decision without any element of force, fraud, deceit, duress, or other form of constraint or coercion. This person is 18 years of age or older, is not now known to be incompetent to consent to treatment with a guardian advocate, and does not have a health care surrogate or proxy currently making medical treatment decisions. I have found this person to be one of the following: [] Competent to provide express and informed consent, as defined above, for voluntary admission to this facility and is competent to provide express and informed consent for treatment. He/she has the consistent capacity to make well reasoned, willful, and knowing decisions concerning his or her medical or mental health treatment. The person fully and consistently understands the purpose of the admission for examination/placement and is fully capable of personally exercising all rights assured [place] [] Incompetent to provide express and informed consent to voluntary admission, and this is incompetent to provide express and informed consent to treatment. The person must be transferred to involuntary status and a petition for a guardian advocate filed with the Circuit Court. [] Refusing to provide express and informed consent to voluntary admission but is competent to provide express and informed consent for treatment. The person must be discharged or transferred to involuntary status. Form shall be completed within 24 hours of a person's arrival at the receiving facility and filed in the clinical record of each person: 1. Admitted on a voluntary basis 2. Permitted to provide express and informed consent to his/her own treatment 3. Allowed to transfer from involuntary to voluntary status 4. Prior to permitting a person to consent to his or her own treatment after having been previously found incompetent to consent to treatment. History of Present Illness Capacity: Has capacity History of Present Illness: Pt is a 42 YOWF with a hx of major depressive disorder was admitted to [facility] under a BA after she presented voluntarily to ED c/o of severe depression with suicidal ideation and plan to stab self. She was seen and discussed with nursing stafff. Chart reviewed. PT reports that she has a long hx of major depressive disorder with mutliple suicide attempts and psychiatric hospitalizations. She states that between [id number] she had over 100 suicide attempts. She reports that she has been relatively stable ("for me" ) on current regimen of effexor XR 150mg po Qam, vistaril prn anxiety and mirtazapine for sleep. She reports that approximately 2 months ago she began to have depressive symptoms again which she describes as anhedonia, depressed mood , lack of energy motivation and very negative dark thoughts. She states for the past week she has had urges to hurt herself. She states that she received an eviction notice which was the last straw. She states that she began ruminating on stabbing herself to so presnted to the hospital. She reports past medication trials of lithium, geodon, cymbalta, prozac, risperidone and other antidepressants and mood stabilizers. She states that effexor has been most effective. Dose has been the same for years. She denies any medication side effects and reports that she has been compliant with medications. She states that she does not currently have a psychiatrist and PCP prescribes mediacations. She denies HI, psychosis or corina symptoms. She reports that anxiety has been very high as depression has increased. Staff report that pt has been in bed most of day, irritable with staff. She denies any drug or alcohol use. She reports that she also takes prilosec 40mg po QHS for GERD and c/o b/c she has not received medication. - Inpatient Certification I certify that the inpatient services were ordered in accordance with Medicare regulations governing the order. This includes certification that hospital inpatient services are reasonable and necessary and in the case of services not specified as inpatient-only under 42 CFR 419.22(n), that they are appropriately provided as inpatient services in accordance to with the 2-midnight benchmark under 43 CFR 412.3(e) I certify that inpatient psychiatric hospital services are medically necessary. Evaluation and treatment and/or diagnostic testing are expected to improve the patient's condition. The patient needs on a daily basis, active treatment furnished directly by or requiring the supervision of inpatient psychiatric facility personnel. Estimated Total Length of Stay (Days): 3 Plans for Post Hospital Care: Not yet determined Review of Systems Psychiatric: Reports depression, Reports hopelessness, Reports irritability, Reports lack of enjoyment, Reports panic attacks, Reports thoughts of hurting/ killing yourself PMFSH - History History Provided By: Patient - Medical History Medical History: Medical History (Last Reviewed 05/03/18 @ 14:22 by Johnna Da Silva MD) History of chronic pain Hx of anxiety disorder Hx of diabetes mellitus Hx of hysterectomy Hx of major depression - Surgical History Surgical History: Surgical History (Last Reviewed 05/03/18 @ 14:22 by Johnna Da Silva MD) History of Hx of cholecystectomy - Family History Family History: Family History (Last Reviewed 05/03/18 @ 14:22 by Johnna Da Silva MD) Father CAD (coronary artery disease) Mother Family estrangement - Social History I have reviewed the patient's Social History: Yes - Tobacco History Second Hand Smoke Exposure: Yes Tobacco Use In Past 30 Days: Yes Smoking Status: Current every day smoker Tobacco Type: Cigarettes - Alcohol History How Often Do You Have a Drink Containing Alcohol: Never - Substance Use History Substance History: Past History - Substance Use Type Opiates Comment: "NOT ABUSE OF OPIATES, IM PRESCRIBED THEM." TOX NEG. Marijuana Status: Active Route Used: By Mouth, Inhalation Reason for Use: Calm Down, Feels Good - Travel History Recent Travel in the [place] Within the Last 8 Weeks: No Recent Travel Out of the Country Within the Last 8 Weeks: No - Immunization History Tetanus Immunization: <5 Years Tetanus Immunization Year if Known: 2017 Hx Influenza Vaccine This Season: No Medications and Allergies Active Medications: Active Medications Acetaminophen (Tylenol) 650 mg PO Q4H PRN PRN Reason: Pain 1-5 or Temp >101F Al Hydrox/Mg Hydrox/Simethicone (Mag-Al Plus Susp Liq) 30 ml PO Q6H PRN PRN Reason: DYSPEPSIA Al Hydroxide/Mg Hydroxide (Milk Of Magnesia Liq) 30 ml PO DAILY PRN PRN Reason: Mild Constipation Dextrose (D50w Vial) 50 ml IV.PUSH UNSCH PRN PRN Reason: PER HYPOGLYCEMIA PROTOCOL Glucagon (Glucagon Inj) 1 mg OTHER PRN PRN PRN Reason: for Hypoglycemia Protocol Insulin Aspart (Novolog Insulin Correctional Sugar Inj) 0 unit SQ ACHS [facility]; Protocol Insulin Detemir (Levemir Inj) 18 unit SQ BID [facility] Lorazepam (Ativan) 1 mg PO Q6H PRN PRN Reason: MODERATE TO SEVERE ANXIETY Lorazepam (Ativan Inj) 1 mg IM Q6H PRN PRN Reason: MODERATE TO SEVERE ANXIETY Metformin HCl (Glucophage) 1,000 mg PO BID [facility] Last Admin: 05/03/18 10:49 Dose: 1,000 mg Methocarbamol (Robaxin) 500 mg PO Q6H PRN PRN Reason: pain Nicotine (Habitrol 21 Mg Patch.24 Hr) 1 patch T-DERMAL DAILY [facility] Last Admin: 05/03/18 09:58 Dose: 1 patch Oxycodone HCl (Roxicodone) 10 mg PO BID PRN PRN Reason: PAIN SCALE 1 TO 10 Patch Removal (Remove Old Patch) 1 each T-DERMAL HS [facility] Allergies Allergy/AdvReac Type Severity Reaction Status Date / Time ciprofloxacin Allergy Unknown Edema Verified 05/02/18 19:24 hydromorphone Allergy Unknown Unconscious Verified 05/02/18 19:24 Penicillins Allergy Unknown Anaphylaxis Verified 05/02/18 19:24 Home Medications Medication Instructions Recorded Confirmed Type oxycodone 10 mg PO BID PRN 10/02/17 05/02/18 History Novolog U-100 Insulin aspart 8 - 10 units SUBDERMAL TIDAC 12/03/17 05/02/18 History insulin glargine [Lantus U-100 18 unit SUBCUT BID 12/03/17 05/02/18 History Insulin] metformin 1,000 mg PO BID 12/03/17 05/02/18 History venlafaxine [Effexor XR] 150 mg PO DAILY 12/03/17 05/02/18 History Results - Labs CBC & Chem 7: 05/02/18 20:00 05/02/18 20:00 Labs: Laboratory Results - last 24 hr 05/02/18 05/02/18 05/02/18 20:00 20:00 20:00 WBC 11.1 H RBC 4.98 Hgb 15.6 H Hct 45.2 MCV 90.8 MCH 31.4 MCHC 34.5 RDW 13.3 Plt Count 215 MPV 8.9 Neut % (Auto) 73.3 H Lymph % (Auto) 18.6 [place] % (Auto) 4.7 Eos % (Auto) 2.8 Baso % (Auto) 0.6 Neut # (Auto) 8.1 H Lymph # (Auto) 2.1 [place] # (Auto) 0.5 Eos # (Auto) 0.3 Baso # (Auto) 0.1 WBC Differential . Differential Comment Auto diff final Sodium 134 L Potassium 3.7 Chloride 100 Carbon Dioxide 20.8 L Anion Gap 13 BUN 18 Creatinine 0.79 Estimated GFR 79 L POC Glucose Random Glucose 352 H Calcium 9.3 Magnesium 2.2 Total Bilirubin 0.5 AST 6 L ALT 18 Alkaline Phosphatase 78 Total Protein 7.4 Albumin 4.0 TSH 1.270 Salicylates 1.8 L Urine Opiates Screen Acetaminophen Less than 2.0 L Ur Barbiturates Screen Ur Amphetamines Screen U Benzodiazepines Scrn Urine Cocaine Screen U Cannabinoids Screen Serum Alcohol 55 H 05/02/18 05/03/18 05/03/18 20:00 00:59 08:37 WBC RBC Hgb Hct MCV MCH MCHC RDW Plt Count MPV Neut % (Auto) Lymph % (Auto) [place] % (Auto) Eos % (Auto) Baso % (Auto) Neut # (Auto) Lymph # (Auto) [place] # (Auto) Eos # (Auto) Baso # (Auto) WBC Differential Differential Comment Sodium Potassium Chloride Carbon Dioxide Anion Gap BUN Creatinine Estimated GFR POC Glucose 343 H 428 H Random Glucose Calcium Magnesium Total Bilirubin AST ALT Alkaline Phosphatase Total Protein Albumin TSH Salicylates Urine Opiates Screen Neg Acetaminophen Ur Barbiturates Screen Neg Ur Amphetamines Screen Neg U Benzodiazepines Scrn Neg Urine Cocaine Screen Neg U Cannabinoids Screen Neg Serum Alcohol Exam Vital signs: Vital Signs 05/02/18 19:24 05/02/18 22:49 05/03/18 02:50 Temperature 98.5 F 97.8 F 98 F Pulse Rate 105 H 98 H 87 Respiratory Rate 18 13 16 Blood Pressure 113/75 101/58 L 99/72 L Pulse Oximetry 99 96 99 05/03/18 05:38 05/03/18 06:02 Temperature 97.8 F 97.8 F Pulse Rate 84 Respiratory Rate 16 16 Blood Pressure 107/57 L 107/57 L Pulse Oximetry 100 100 Intake & Output 05/02/18 05/03/18 05/03/18 18:59 06:59 18:59 Weight 69.173 kg Other: Weight On Admission 69.173 kg Mental Status Examination Appearance: Disheveled Consciousness: Alert Orientation: x4 Motor Activity: Normal gait Speech: Unremarkable Language: Adequate Fund of Knowledge: Adequate Attention and Concentration: Adequate Memory: Unremarkable Mood: Sad, Anxious Affect: Sad Thought Process & Associations: Intact Thought Content: Appropriate Hallucination Type: None Delusion Type: None Suicidal Ideation: Yes Suicidal Plan: Yes (stab self) Suicidal Intention: No (pt states she feels safe in the hospital) Homicidal Ideation: No Homicidal Plan: No Homicidal Intention: No Insight: Fair Judgment: Impulsive Assessment and Plan - Assessment (1) Severe recurrent major depression without psychotic features Code(s): F33.2 - Major depressive disorder, recurrent severe without psychotic features Status: Acute - Plan Plan: Estimated LOS: [] days PT is agreeable to voluntary admission and has capacity. Will allow pt to sign for voluntary admission. Titrate effexor xr to 225mg po QAM to target depression and anxiety symptoms. Risks vs benefits, rationale of use and potential side effects and adverse reactions including hypertension discussed with pt. Pt wishes to discontinue mirtazapine for sleep as makes too groggy during the day and just use vistaril for anxiety at night as is the cause of poor sleep. Will monitor close and evaluate further for personality disorder. Hospitalist was consulted for medical management. Justification for Continued Inpatient Stay: impairments in safety
--- NOTE | 2018-05-03 14:39 | P.CONIM ---
History of Present Illness Service: [facility] Consult date: 05/03/18 Requesting Physician: Bradley Jaeger Reason for Consult: DM and chronic pain Primary Care Provider: Shakira Apple DO Chief Complaint: Suicidal ideation History of Present Illness: 42-year-old female with PMH significant chronic pain , DM, COPD, anxiety and depression who presented to the ED on voluntary basis due to suicidal ideation. Hospitalist consult has been requested to assist with medical management of pain and DM. Nurse reports patient is requesting Protonix and has bee irritable. She is seen and examined sitting up in bed in no acute distress. She reports a history of depression, but states that over the past two weeks this has progressively been getting worse. States that she received an eviction notice on Friday and this basically brought things to a head. She has not been following-up with a PCP regularly and has been filling prescriptions for insulin from old prescriptions which she had in the past. She complains of vaginal discharge that is white with itching, believes she may have a yeast infection. She denies dysuria, frequency, suprapubic pain, foul odor, fevers or chills. Complaints of GERD symptoms for which she is on Protonix at home. She is eating and drinking with no N/V/D, denies cough or SOB. Discussed resuming her medications, no further concerns voiced. Review of Systems Review of Systems: all other systems reviewed are negative [facility] Medical History Medical History COPD (chronic obstructive pulmonary disease) (Acute) History of chronic pain (Acute) Hx of anxiety disorder (Acute) Hx of diabetes mellitus (Acute) Hx of hysterectomy (Acute) Hx of major depression (Acute) Surgical History Surgical History History of (Acute) Hx of cholecystectomy (Acute) Family History Family History Father CAD (coronary artery disease) Mother Family estrangement Social History Social History Substance History: Past History Second Hand Smoke Exposure: Yes Smoking Status: Current every day smoker Tobacco Type: Cigarettes How Often Do You Have a Drink Containing Alcohol: Never Recent Travel in [facility] within the Last 8 Weeks: No Recent Out of Country Travel within the Last 8 Weeks: No Substance Abuse Detail Opiates: Substance Use Status: Active Route Used Substance Abuse: By Mouth Substance Abuse Comment: "NOT ABUSE OF OPIATES, IM PRESCRIBED THEM." TOX NEG. Reason for Use: Feels Good Marijuana: Substance Use Status: Active Route Used Substance Abuse: By Mouth and Inhalation Reason for Use: Calm Down and Feels Good Immunization History Tetanus Immunization: <5 Years Tetanus Immunization Year if Known: 2016 Hx Influenza Vaccine This Season: No Medications and Allergies Allergies Allergy/AdvReac Type Severity Reaction Status Date / Time ciprofloxacin Allergy Unknown Edema Verified 05/02/18 19:24 hydromorphone Allergy Unknown Unconscious Verified 05/02/18 19:24 Penicillins Allergy Unknown Anaphylaxis Verified 05/02/18 19:24 Home Medications Medication Instructions Recorded Confirmed Type oxycodone 10 mg PO BID PRN 10/02/17 05/02/18 History Novolog U-100 Insulin aspart 8 - 10 units SUBDERMAL TIDAC 12/03/17 05/02/18 History insulin glargine [Lantus U-100 18 unit SUBCUT BID 12/03/17 05/02/18 History Insulin] metformin 1,000 mg PO BID 12/03/17 05/02/18 History venlafaxine [Effexor XR] 150 mg PO DAILY 12/03/17 05/02/18 History Active Medications: Active Medications Acetaminophen (Tylenol) 650 mg PO Q4H PRN PRN Reason: Pain 1-5 or Temp >101F Al Hydrox/Mg Hydrox/Simethicone (Mag-Al Plus Susp Liq) 30 ml PO Q6H PRN PRN Reason: DYSPEPSIA Al Hydroxide/Mg Hydroxide (Milk Of Magnesia Liq) 30 ml PO DAILY PRN PRN Reason: Mild Constipation Dextrose (D50w Vial) 50 ml IV.PUSH UNSCH PRN PRN Reason: PER HYPOGLYCEMIA PROTOCOL Glucagon (Glucagon Inj) 1 mg OTHER PRN PRN PRN Reason: for Hypoglycemia Protocol Hydroxyzine Pamoate (Vistaril) 50 mg PO Q8H PRN PRN Reason: ANXIETY Insulin Aspart (Novolog Insulin Correctional Sugar Inj) 0 unit SQ ACHS MICK; Protocol Insulin Detemir (Levemir Inj) 18 unit SQ BID MICK Metformin HCl (Glucophage) 1,000 mg PO BID MICK Last Admin: 05/03/18 10:49 Dose: 1,000 mg Methocarbamol (Robaxin) 500 mg PO Q6H PRN PRN Reason: pain Miconazole Nitrate (Monistat 3 Vag Supp) 200 mg VAGINAL HS ON LICENSE OF [facility] Stop: 05/05/18 21:01 Nicotine (Habitrol 21 Mg Patch.24 Hr) 1 patch T-DERMAL DAILY ON LICENSE OF [facility] Last Admin: 05/03/18 09:58 Dose: 1 patch Oxycodone HCl (Roxicodone) 10 mg PO BID PRN PRN Reason: PAIN SCALE 1 TO 10 Pantoprazole Sodium (Protonix) 40 mg PO HS ON LICENSE OF [facility] Patch Removal (Remove Old Patch) 1 each T-DERMAL HS ON LICENSE OF [facility] Venlafaxine HCl (Effexor Xr) 225 mg PO DAILY ON LICENSE OF [facility] Physical Exam Vital signs: Vital Signs 05/02/18 19:24 05/02/18 22:49 05/03/18 02:50 Temperature 98.5 F 97.8 F 98 F Pulse Rate 105 H 98 H 87 Respiratory Rate 18 13 16 Blood Pressure 113/75 101/58 L 99/72 L Pulse Oximetry 99 96 99 05/03/18 05:38 05/03/18 06:02 Temperature 97.8 F 97.8 F Pulse Rate 84 Respiratory Rate 16 16 Blood Pressure 107/57 L 107/57 L Pulse Oximetry 100 100 Intake & Output 05/02/18 05/03/18 05/03/18 18:59 06:59 18:59 Weight 69.173 kg Other: Weight On Admission 69.173 kg Narrative: GENERAL: Well nourished/developed female in on acute distress. SKIN: Warm and dry. HEAD: Atraumatic. Normocephalic. EYES: Pupils equal and round. No scleral icterus. No injection or drainage. ENT: No nasal bleeding or discharge. Mucous membranes pink and moist. NECK: Trachea midline. No JVD. CARDIOVASCULAR: Regular rate and rhythm. RESPIRATORY: No accessory muscle use. Wheezing in upper lobes. GASTROINTESTINAL: Abdomen soft, non-tender, nondistended. +BS. MUSCULOSKELETAL: Extremities without clubbing, cyanosis, or edema. No obvious deformities. NEUROLOGICAL: Awake and alert. No obvious cranial nerve deficits. Motor grossly within normal limits. Five out of 5 muscle strength in the arms and legs. Normal speech. PSYCHIATRIC: Appropriate mood and affect; insight and judgment normal. Results Labs CBC & Chem 7: 05/02/18 20:00 05/02/18 20:00 Assessment and Plan Plan 42-year-old female with PMH significant chronic pain, DM, COPD, anxiety and depression who presented to the ED on voluntary basis 05/02 due to suicidal ideation. Hospitalist consult has been requested to assist with medical management of pain and DM. Suicidal ideation -Admitted to psych department DM, uncontrolled, noncompliant -Diabetic diet -Continue Metformin, Levemir 18units BID, Accu-checks ISS - Monitor BS and adjust accordingly COPD, mild exacerbation - Likely 2/2 tobacco use - Check chest x-ray - short course of steroids, PRN mebs - Monitor respiratory status Chronic pain - E-force checked, active Rx in place, however toxicology screen negative -will discuss with patient proper use, no new Rx for pain medication to be provided on discharge Vaginal yeast infection - Symptoms consistent with yeast, treat with Monistat course GERD-Continue Protonix Alcohol abuse Tobacco use -MTV's, monitor for withdraws, patient reports she is not drinking daily - Encouraged smoking cessation, Nicotine patch in place DVT prophylaxis- ambulation Thank you for this consultation, will continue to follow along. The exam, history, and the medical decision-making described in the above note were completed with the assistance of the mid-level provider. I reviewed and agree with the findings presented. I attest that I had a [id number] encounter with the patient on the same day, and personally performed and documented my assessment and findings in the medical record. 42-year-old female with chronic pain on narcotic, DM, COPD, anxiety and depression who presented with depression and suicidal ideations. She has been placed under Hua act. Hospitalist consult has been requested to assist with medical management of pain and DM. Vital signs noted In no distress Expiratory wheezes COPD. Obtain chest x-ray and start nebulization and steroids Uncontrolled diabetes. Continue home medication with sliding scale coverage Chronic pain. E force checked. Code Status: Full code Discussed Condition With: Patient, nurse,
[2018-05-03] MEDS: Methocarbamol 500 MG Tablet PO PRN ×2 (15:19→21:07)
--- NOTE | 2018-05-03 15:49 | XR ---
EXAM DATE: 05/03/2018 3:30 PM EST AGE/SEX: 42 years / Female INDICATIONS: Cough and wheezing. CLINICAL DATA: This is the patient's initial encounter. Patient reports that signs and symptoms have been present for 1 day and indicates a pain score of 0/10. MEDICAL/SURGICAL HISTORY: None. Hysterectomy. COMPARISON: [facility], CHEST 2V PA&LAT, 03/26/2018. . FINDINGS: No significant new focal pleural or parenchymal opacities. The cardiomediastinal contours are unrema rkable. Osseous structures are intact. CONCLUSION: 1. Negative portable chest. Electronically signed by: Reed Jackman MD Board Certified Radiologist 05/03/2018 3:47 PM EST
[2018-05-03 16:34] LABS: Bilirubin,Urine Negative (Negative); Clarity,Urine Clear (Clear); Color,Urine Straw (Yellw/Straw); Glucose,Urine (UA) 500 or Greater mg/dL (Negative); Hyaline Casts,Urine 1 /lpf (0-3); Leukocyte Esterase,Urine Trace (Negative); Nitrite,Urine Negative (Negative); Specific Gravity,Urine 1.027 (1.002-1.035); Squamous Epithelial Cell,Urine 3 /hpf (0-5)
[2018-05-03] MEDS: Insulin NovoLOG Aspart Correctional Sugar Inj SQ SCH ×2 (16:34→21:08)
[2018-05-03] MEDS: predniSONE 20 MG Tablet PO SCH (18:32)
[2018-05-03] MEDS: Insulin Detemir Inj 1,000 UNIT/10 ML Vial SQ SCH (21:09)
[2018-05-04] MEDS: Insulin NovoLOG Aspart Correctional Sugar Inj SQ SCH ×4 (09:01→22:00)
[2018-05-04] MEDS: Insulin Detemir Inj 1,000 UNIT/10 ML Vial SQ SCH ×2 (09:02→22:00)
[2018-05-04] MEDS: Folic Acid 1 MG Tablet PO SCH (09:03)
[2018-05-04] MEDS: Venlafaxine XR 75 MG Capsule PO SCH (09:03)
[2018-05-04] MEDS: predniSONE 20 MG Tablet PO SCH (09:03)
[2018-05-04] MEDS: Multivitamin/Minerals Therapeutic Tablet PO SCH (09:03)
[2018-05-04 11:06] LABS: Calcium 8.6 mg/dL (8.5-10.1); Carbon Dioxide 25.2 meq/L (21.0-32.0); Potassium 4.1 meq/L (3.5-5.1)
[2018-05-04 11:10] LABS: Chol/HDL Ratio 4.03 Ratio; HDL Cholesterol 48.6 mg/dL (40.0-60.0)
[2018-05-04] MEDS: Baclofen 10 MG Tablet PO SCH ×2 (14:00→22:00)
--- NOTE | 2018-05-04 14:38 | P.PNIM ---
Subjective Interval history: Follow-up visit for DM, chronic pain, and possible COPD. Nurse reports hyperglycemia today otherwise uneventful. Patient is seen and examined in her room in on acute distress, she reports her breathing has improved. Still having vaginal symptoms, not yet completed treatment. States pain medication was DC by psych due to interactions with depression medications. She reports taking her pain medications at home as prescribed on a regular basis. She complains of ear fullness. Denies throat pain, fevers chills , N/V/D, cough or SOB. Physical Exam Vital signs: Vital Signs 05/03/18 16:00 05/03/18 17:31 05/03/18 17:37 Temperature 96 F L Pulse Rate 92 H 97 H Respiratory Rate 16 18 18 Blood Pressure 100/58 L Pulse Oximetry 100 05/04/18 05:19 05/04/18 09:41 Temperature 97.8 F Pulse Rate 80 89 Respiratory Rate 18 18 Blood Pressure 112/55 L Pulse Oximetry 96 Intake & Output 05/03/18 05/04/18 05/04/18 18:59 06:59 18:59 Weight 70.4 kg Narrative: GENERAL: Well nourished/developed female in on acute distress. SKIN: Warm and dry. HEAD: Atraumatic. Normocephalic. EYES: Pupils equal and round. No scleral icterus. No injection or drainage. ENT: No nasal bleeding or discharge. Mucous membranes pink and moist. Bilateral TM with no fluid line, on erythema, scant amount of cerumen in right ear. NECK: Trachea midline. CARDIOVASCULAR: Regular rate and rhythm. RESPIRATORY: No accessory muscle use. Clear to auscultation in all lobes. GASTROINTESTINAL: Abdomen soft, non-tender, nondistended. +BS. MUSCULOSKELETAL: Extremities without clubbing, cyanosis, or edema. No obvious deformities. NEUROLOGICAL: Awake and alert. No obvious cranial nerve deficits. Motor grossly within normal limits. Normal speech. PSYCHIATRIC: Appropriate mood and affect; insight and judgment normal. Results Labs CBC & Chem 7: 05/02/18 20:00 05/04/18 09:26 Imaging Imaging: Impressions Chest X-Ray 05/03/18 14:57 CONCLUSION: 1. Negative portable chest. Assessment and Plan (1) Severe recurrent major depression without psychotic features: Code(s): F33.2 - Major depressive disorder, recurrent severe without psychotic features Status: Acute Plan 42-year-old female with PMH significant chronic pain, DM, COPD, anxiety and depression who presented to the ED on voluntary basis 05/02 due to suicidal ideation. Hospitalist consult has been requested to assist with medical management of pain and DM. Suicidal ideation -Admitted to psych department DM, uncontrolled, noncompliant -Diabetic diet -Continue Metformin, Levemir 18units BID, Accu-checks ISS - BS high likely 2/2 Prednisone, add NovoLOG 5units TID with meals - Monitor BS and adjust accordingly COPD, mild exacerbation - Likely 2/2 tobacco use - Chest x-ray negative - short course of steroids, will do 3 days as symptoms improved and BS high, PRN mebs -Recommend PFT's as outpatient Chronic pain - E-force checked, active Rx in place, however toxicology screen negative - Patient reports taking this regularly at home, psych has adjusted dose and frequency Vaginal yeast infection - Symptoms consistent with yeast, treat with Monistat course GERD-Continue Protonix Alcohol abuse Tobacco use -MTV's, monitor for withdraws, patient reports she is not drinking daily - Encouraged smoking cessation, Nicotine patch in place Ear discomfort -TM with no signs of infection, continue to monitor if worse or ongoing consider empiric Tx DVT prophylaxis- ambulation Progress Note: Quality VTE Deep Vein Thrombosis/Pulmonary Embolism Present on Admission: No
[2018-05-04 15:52] LABS: Hemoglobin A1c 12.9 % (4.3-6.0)
[2018-05-05] MEDS: Baclofen 10 MG Tablet PO SCH ×3 (06:11→22:19)
--- NOTE | 2018-05-05 08:16 | P.PNPSY ---
Subjective Chief Complaint: depression with suicidal ideation Remarks: Subjective: Patient continues to complain of suicidality which is not evident as far as her mood and behavior on the unit would support. Patient was interviewed by psychologist social who felt the patient was defensive about her pain medication doctor and did not want to give his name. The patient does understand that she is being tapered off OxyContin and will receive only 5 mg per twice a day today and once tomorrow. This arrangement had to be made through a direct order with the pharmacy since the elarm does not allow for this choice. Based on the patient's statement she does remain suicidal. Review of Systems Patient made no complaints on the ROS OxyContin. We will continue to monitor the patient back pain and its association with her suicidal ideation. Mental Status Examination Appearance: Disheveled Consciousness: Alert Orientation: x4 Motor Activity: Normal gait Speech: Unremarkable Language: Adequate Fund of Knowledge: Adequate Attention and Concentration: Adequate Memory: Unremarkable Mood: Sad, Anxious Affect: Sad Thought Process & Associations: Intact Thought Content: Appropriate Hallucination Type: None Delusion Type: None Suicidal Ideation: Yes Suicidal Plan: Yes (stab self) Suicidal Intention: No (pt states she feels safe in the hospital) Homicidal Ideation: No Homicidal Plan: No Homicidal Intention: No Insight: Fair Judgment: Impulsive Assessment and Plan - Assessment (1) Severe recurrent major depression without psychotic features Code(s): F33.2 - Major depressive disorder, recurrent severe without psychotic features Status: Acute - Plan Plan: Estimated LOS: [] days PT is agreeable to voluntary admission and has capacity. Will allow pt to sign for voluntary admission. Titrate effexor xr to 225mg po QAM to target depression and anxiety symptoms. Risks vs benefits, rationale of use and potential side effects and adverse reactions including hypertension discussed with pt. Pt wishes to discontinue mirtazapine for sleep as makes too groggy during the day and just use vistaril for anxiety at night as is the cause of poor sleep. Will monitor close and evaluate further for personality disorder. Hospitalist was consulted for medical management. Patient will receive OxyContin 5 mg twice daily today and once tomorrow and then will be discontinued. I would anticipate if the patient has malingering that she will give up her claims of suicidality in favor of discharge so that she can return to her OxyContin. Justification for Continued Inpatient Stay: Patient continues to complain of suicidality. It should be noted that the patient claims to have made at least 100 attempts at suicide
[2018-05-05] MEDS: Insulin Detemir Inj 1,000 UNIT/10 ML Vial SQ SCH ×2 (08:54→22:21)
[2018-05-05] MEDS: Insulin NovoLOG Aspart Correctional Sugar Inj SQ SCH ×4 (08:55→22:20)
[2018-05-05] MEDS: predniSONE 20 MG Tablet PO SCH (08:57)
[2018-05-05] MEDS: Multivitamin/Minerals Therapeutic Tablet PO SCH (08:57)
[2018-05-05] MEDS: Venlafaxine XR 75 MG Capsule PO SCH (08:57)
[2018-05-05] MEDS: Folic Acid 1 MG Tablet PO SCH (08:57)
--- NOTE | 2018-05-05 10:26 | P.TTN ---
- Patient Problems Problems: 1. Discharge planning 2. Medication compliance 3. Knowledge deficit 4. Lack of coping skills - Progress Toward Goals Provider Present: Other Provider Input: 05/05/18 Patient is being tapered off OxyCopntin. Patient remains suicidal. continue treatment Nurse Input: 05/05/18 Patient is med compliant, reports not sleeping well last night. Patient is anxious. Psychiatric Counselors Present: [facility] Psych[facility] Therapist Input: 05/05/18 Patient continues to present anxious, med compliant, cooperative but guarded, restricted. Group Spec/RT/OT/HARDEN Present: DERECK Tavarez Occupational Therapist Input: 05/05/18 Patient refuses to attend any groups - Documentation Teaching Recipient: Patient
--- NOTE | 2018-05-05 14:43 | P.PNIM ---
Subjective Interval history: Follow-up visit diabetes, chronic pain, possible COPD Patient seen and examined while resting in bed. She complains of a productive cough with brown sputum production. Afebrile overnight. She denies chest pain, palpitations, shortness of breath, abdominal pain, N/V/D. Patients pain medications are being weaned per primary team Physical Exam Vital signs: Vital Signs 05/04/18 16:43 05/04/18 17:39 05/04/18 22:31 Temperature 96.9 F L Pulse Rate 94 H 108 H 92 H Respiratory Rate 16 18 16 Blood Pressure 120/78 Pulse Oximetry 97 05/05/18 03:39 05/05/18 10:30 Temperature 98.7 F Pulse Rate 76 88 Respiratory Rate 16 18 Blood Pressure 132/78 Pulse Oximetry 97 Intake & Output 05/04/18 05/05/18 05/05/18 18:59 06:59 18:59 Intake Total 480 / 480 Balance 480 / 480 Intake: Oral 480 / 480 Other: Date of Last Bowel Movement 05/03/18 05/03/18 Narrative: GENERAL: Well nourished/developed female in on acute distress. SKIN: Warm and dry. HEAD: Atraumatic. Normocephalic. EYES: Pupils equal and round. No scleral icterus. No injection or drainage. ENT: No nasal bleeding or discharge. Mucous membranes pink and moist. NECK: Trachea midline. CARDIOVASCULAR: Regular rate and rhythm. RESPIRATORY: No accessory muscle use. Clear to auscultation in all lobes. GASTROINTESTINAL: Abdomen soft, non-tender, nondistended. +BS. MUSCULOSKELETAL: Extremities without clubbing, cyanosis, or edema. No obvious deformities. NEUROLOGICAL: Awake and alert. No obvious cranial nerve deficits. Motor grossly within normal limits. Normal speech. PSYCHIATRIC: Appropriate mood and affect; insight and judgment normal. Results Labs CBC & Chem 7: 05/02/18 20:00 05/04/18 09:26 Assessment and Plan (1) Severe recurrent major depression without psychotic features: Code(s): F33.2 - Major depressive disorder, recurrent severe without psychotic features Status: Acute Plan 42-year-old female with PMH significant chronic pain, DM, COPD, anxiety and depression who presented to the ED on voluntary basis 05/02 due to suicidal ideation. Hospitalist consult has been requested to assist with medical management of pain and DM. Suicidal ideation -Admitted to psych department -primary mgmt per psych DM, uncontrolled, noncompliant - improved -blood sugars 180-200 range and improved -Diabetic diet -Continue Metformin, Levemir 18units BID, continue Novolog 5units TID with meals , Accu-checks ISS -BS high likely 2/2 Prednisone COPD, mild exacerbation -Likely 2/2 tobacco use -Chest x-ray negative -short course of steroids, will do 3 days as symptoms improved and BS high, PRN mebs -Recommend PFT's as outpatient Chronic pain -E-force checked, active Rx in place, however toxicology screen negative -Patient reports taking this regularly at home, psych is tapering patients Oxycontin Vaginal yeast infection -Symptoms consistent with yeast, treat with Monistat course GERD -Continue Protonix Alcohol abuse Tobacco use -MTV's, monitor for withdraws, patient reports she is not drinking daily -Encouraged smoking cessation, Nicotine patch in place Ear discomfort -TM with no signs of infection, continue to monitor if worse or ongoing consider empiric Tx DVT prophylaxis- ambulation Code Status: Full Discussed Condition With: RN, patient, supervising MD Discharge Planning: per primary team Progress Note: Quality VTE Deep Vein Thrombosis/Pulmonary Embolism Present on Admission: No
[2018-05-06] MEDS: Baclofen 10 MG Tablet PO SCH ×3 (05:54→21:01)
--- NOTE | 2018-05-06 08:30 | P.PNPSY ---
Subjective Chief Complaint: depression with suicidal ideation Remarks: Subjective: Patient feeling somewhat better she was able to tolerate the tapering of her OxyContin and understands that today will be her last 5 mg dosage. She does not attribute her improve and reduction in anxiety to the medication changes, but is worried about how she will get by without the OxyContin as much is worry about the fact that she has been evicted from her apartment. 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 Patient has made some improvement in her diabetes management which is likely most responsible for her improved mood. There is a worry at this point is that the patient will return to taking OxyContin and pay less attention to the management of her diabetes. This likely will result in return of her depressed mood. Review of Systems ROS: There is improvement in her mood and somewhat the perturbation that led to her is suicidal thoughts and plan, but judgment and insight remain problematic. Mental Status Examination Appearance: Disheveled Consciousness: Alert Orientation: x4 Motor Activity: Normal gait Speech: Unremarkable Language: Adequate Fund of Knowledge: Adequate Attention and Concentration: Adequate Memory: Unremarkable Mood: Sad, Anxious Affect: Sad Thought Process & Associations: Intact Thought Content: Appropriate Hallucination Type: None Delusion Type: None Suicidal Ideation: Yes (Decreased focus, but uncertain.) Suicidal Plan: No Suicidal Intention: No (pt states she feels safe in the hospital) Homicidal Ideation: No Homicidal Plan: No Homicidal Intention: No Insight: Fair Judgment: Impulsive Assessment and Plan - Assessment (1) Severe recurrent major depression without psychotic features Code(s): F33.2 - Major depressive disorder, recurrent severe without psychotic features Status: Acute - Plan Plan: Estimated LOS: [] days PT is agreeable to voluntary admission and has capacity. Will allow pt to sign for voluntary admission. Titrate effexor xr to 225mg po QAM to target depression and anxiety symptoms. Risks vs benefits, rationale of use and potential side effects and adverse reactions including hypertension discussed with pt. Pt wishes to discontinue mirtazapine for sleep as makes too groggy during the day and just use vistaril for anxiety at night as is the cause of poor sleep. Will monitor close and evaluate further for personality disorder. Hospitalist was consulted for medical management. Patient will receive OxyContin 5 mg twice daily today and once tomorrow and then will be discontinued. I would anticipate if the patient has malingering that she will give up her claims of suicidality in favor of discharge so that she can return to her OxyContin. Justification for Continued Inpatient Stay: Discharge is planned for tomorrow if there is improvement in the patient's stability.
[2018-05-06] MEDS: Venlafaxine XR 75 MG Capsule PO SCH (08:49)
[2018-05-06] MEDS: predniSONE 20 MG Tablet PO SCH (08:50)
[2018-05-06] MEDS: Multivitamin/Minerals Therapeutic Tablet PO SCH (08:50)
[2018-05-06] MEDS: Folic Acid 1 MG Tablet PO SCH (08:50)
[2018-05-06] MEDS: Insulin NovoLOG Aspart Correctional Sugar Inj SQ SCH ×4 (08:51→21:07)
[2018-05-06] MEDS: Insulin Detemir Inj 1,000 UNIT/10 ML Vial SQ SCH ×2 (08:57→21:01)
[2018-05-06 09:24] LABS: Baso % (Auto) 0.4 % (0.0-2.0); Eos # (Auto) 0.2 th/mm3 (0.0-0.4); Eos % (Auto) 3.2 % (0.0-4.0); Hematocrit 39.7 % (35.0-46.0); Hemoglobin 13.9 gm/dL (11.6-15.3); Lymph # (Auto) 1.4 th/mm3 (1.0-4.8); Lymph % (Auto) 19.4 % (9.0-44.0); Mean Corpuscular Hemoglobin 32.1 pg (27.0-34.0); Mean Corpuscular Volume 91.8 fL (80.0-100.0); Mean Platelet Volume 8.6 fL (7.0-11.0); Mono # (Auto) 0.5 th/mm3 (0.0-0.9); Mono % (Auto) 6.1 % (0.0-8.0); Neut # (Auto) 5.3 th/mm3 (1.8-7.7); Neut % (Auto) 70.9 % (16.0-70.0); Platelet Count 164 th/mm3 (150-450); Red Blood Count 4.33 mil/mm3 (4.00-5.30); Red Cell Distribution Width 13.5 % (11.6-17.2); White Blood Count 7.5 th/mm3 (4.0-11.0)
[2018-05-06 09:59] LABS: Anion Gap 9 meq/L (5-15); Blood Urea Nitrogen 8 mg/dL (7-18); Calcium 8.2 mg/dL (8.5-10.1); Carbon Dioxide 26.2 meq/L (21.0-32.0); Chloride 101 meq/L (98-107); Glomerular Filtration Rate Greater Than 89 mL/min (>89); Glucose,Random 217 mg/dL (74-106); Potassium 3.6 meq/L (3.5-5.1); Sodium 136 meq/L (136-145)
--- NOTE | 2018-05-06 12:40 | P.PNIM ---
Subjective Interval history: Follow-up visit diabetes, chronic pain, possible COPD. Patient resting in bed. She reports cough with scant sputum production. RN notes mild, diffuse expiratory wheezing. Patient reports being a smoker of 1 ppd. No chest pain, shortness of breath, dyspnea with exertion, fevers or chills. Physical Exam Vital signs: Vital Signs 05/05/18 16:58 05/05/18 17:24 05/05/18 20:31 Temperature 98.1 F Pulse Rate 85 101 H 67 Respiratory Rate 17 16 18 Blood Pressure 113/72 Pulse Oximetry 97 05/06/18 05:26 05/06/18 10:37 05/06/18 11:18 Temperature 98 F 97.7 F Pulse Rate 72 78 87 Respiratory Rate 16 20 18 Blood Pressure 122/73 119/82 Pulse Oximetry 95 99 Intake & Output 05/05/18 05/06/18 05/06/18 18:59 06:59 18:59 Intake Total 840 / 840 Balance 840 / 840 Intake: Oral 840 / 840 Other: Date of Last Bowel Movement 05/03/18 Narrative: GENERAL: Well nourished/developed female in on acute distress. SKIN: Warm and dry. HEAD: Atraumatic. Normocephalic. EYES: Pupils equal and round. No scleral icterus. No injection or drainage. ENT: No nasal bleeding or discharge. Mucous membranes pink and moist. NECK: Trachea midline. CARDIOVASCULAR: Regular rate and rhythm. RESPIRATORY: No accessory muscle use. Clear to auscultation in all lobes. GASTROINTESTINAL: Abdomen soft, non-tender, nondistended. +BS. MUSCULOSKELETAL: Extremities without clubbing, cyanosis, or edema. No obvious deformities. NEUROLOGICAL: Awake and alert. No obvious cranial nerve deficits. Motor grossly within normal limits. Normal speech. PSYCHIATRIC: Appropriate mood and affect; insight and judgment normal. Results Labs CBC & Chem 7: 05/06/18 08:44 05/06/18 08:44 Assessment and Plan (1) Severe recurrent major depression without psychotic features: Code(s): F33.2 - Major depressive disorder, recurrent severe without psychotic features Status: Acute Plan 42-year-old female with PMH significant chronic pain, DM, COPD, anxiety and depression who presented to the ED on voluntary basis 05/02 due to suicidal ideation. Hospitalist consult has been requested to assist with medical management of pain and DM. Suicidal ideation -Admitted to psych department -primary mgmt per psych DM, uncontrolled, noncompliant - improved -blood sugars > 200 with 2 episodes of hypoglycemia -Diabetic diet -Continue Metformin, Levemir 18units BID, continue Novolog 5units TID with meals , Accu-checks ISS -BS high likely 2/2 Prednisone COPD, mild exacerbation -Likely 2/2 tobacco use -Chest x-ray negative -short course of steroids, will do 3 days as symptoms improved and BS high, PRN nebs -Recommend PFT's as outpatient Chronic pain -E-force checked, active Rx in place, however toxicology screen negative -Patient reports taking this regularly at home, psych is tapering patients Oxycontin Vaginal yeast infection -Symptoms consistent with yeast, treat with Monistat course GERD -Continue Protonix Alcohol abuse Tobacco use -MTV's, monitor for withdraws, patient reports she is not drinking daily -Encouraged smoking cessation, Nicotine patch in place Ear discomfort -TM with no signs of infection, continue to monitor if worse or ongoing consider empiric Tx DVT prophylaxis- ambulation Code Status: Full Discussed Condition With: RN, patient Discharge Planning: per primary team Progress Note: Quality VTE Deep Vein Thrombosis/Pulmonary Embolism Present on Admission: No
[2018-05-06 16:46] VITALS: O2SAT 98
[2018-05-07 05:43] VITALS: BP 121/50; TEMP 97.7
[2018-05-07] MEDS: Baclofen 10 MG Tablet PO SCH (06:34)
[2018-05-07] MEDS: Multivitamin/Minerals Therapeutic Tablet PO SCH (08:41)
[2018-05-07] MEDS: Folic Acid 1 MG Tablet PO SCH (08:41)
[2018-05-07] MEDS: Insulin Detemir Inj 1,000 UNIT/10 ML Vial SQ SCH (08:42)
[2018-05-07] MEDS: Venlafaxine XR 75 MG Capsule PO SCH (08:42)
[2018-05-07] MEDS: Insulin NovoLOG Aspart Correctional Sugar Inj SQ SCH (08:42)
[2018-05-07 14:15] VITALS: PULSE 75; RESP 20
== END 2018-05-07 11:50 | disposition home or self-care (01) | DRG 885 ==
LOC: NEPJ 18:47 → NEDA 22:52 → H260 05-03 02:39
PROVIDERS: ADMIT Psychiatry & Neurology Child & Adolescent Psychiatry; ATTEND Psychiatry & Neurology Child & Adolescent Psychiatry
CPT/HCPCS: 71010; 71045; 80048; 80053; 80061; 80307; 81001; 82948; 82962; 83036; 83735; 84443; 85025; 90791; 94640; 94664; 94665; 97163; 99285; J1815; J7506; J7512